=== PATIENT | female | born 2000 | race African-American/Black ===

== ENCOUNTER 2018-05-31 15:33 | Outpatient (CLI) | payer MEDICAID, SELFPAY ==
[2018-05-31 16:44] LABS: FREE T4 0.96 ng/dL (0.78-1.34); TSH 3.79 uIU/mL (0.516-4.13)
== END 2018-05-31 15:34 ==
PROVIDERS: PCP Pediatrics; Visit Provider Nurse Practitioner Women's Health
DX: E03.9 Hypothyroidism, unspecified (principal)
CPT/HCPCS: 36415; 84439; 84443

== ENCOUNTER 2018-09-18 16:26 | Outpatient (CLI) | payer MEDICAID, SELFPAY ==
[2018-09-18 16:48] LABS: Abs Immature Grans 0.02 k/cumm (0.0-0.09); Absolute Basophil Count 0.04 k/cumm (0.0-0.2); Absolute Eosinophil Count 0.44 k/cumm (0.0-0.7); Absolute Lymphocyte Count 2.14 k/cumm (1.2-3.4); Absolute Monocyte Count 0.75 k/cumm (0.11-0.7); Absolute Neutrophil Count 4.77 k/cumm (1.2-6.7); Basophils % 0.5; Eosinophils % 5.4; HCT 37.2 % (36.0-46.0); HGB 12.5 g/dL (12.0-15.5); Immature Grans % 0.2; Lymphocytes % 26.2; Mean Corp. HGB Concentration 33.6 g/dL (32.0-36.0); Mean Corpuscular Hemoglobin 26.5 pg (27.0-33.0); Mean Platelet Volume 9.9 fL (8.0-11.0); Monocytes % 9.2; Neutrophils % 58.5; Platelet Count 285 x1000/uL (130-400); RBC 4.71 m/cumm (4.00-5.20); RBC Distribution Width 15.8 % (11.7-14.6); White Blood Cell Count 8.16 k/cumm (4.4-10.8)
[2018-09-18 17:03] LABS: LDH 209 U/L (81-234)
[2018-09-18 17:26] LABS: ESR 23 MM/HR (0-20)
== END 2018-09-18 16:46 ==
PROVIDERS: Registered Nurse; PCP Pediatrics; Visit Provider Pediatrics
DX: J03.90 Acute tonsillitis, unspecified (principal)
CPT/HCPCS: 85652; 83615; 85025

== ENCOUNTER 2018-09-25 12:09 | Outpatient (REF) | payer MEDICAID, SELFPAY ==
[2018-09-26 14:16] LABS: Chlamydia Result Negative; GC Result Negative; Specimen Description URINE
== END 2018-09-25 12:29 ==
LOC: LBN 12:09
PROVIDERS: PCP Pediatrics; Visit Provider Nurse Practitioner Women's Health
DX: Z11.3 Encounter for screening for infections with a predominantly sexual mode of transmission (principal)
CPT/HCPCS: 87491; 87591

== ENCOUNTER 2018-10-02 14:35 | Outpatient (CLI) | payer MEDICAID, SELFPAY ==
[2018-10-02 15:21] LABS: Mono Screening Negative (Negative)
[2018-10-02 16:14] LABS: FREE T4 1.05 ng/dL (0.76-1.46); TSH 4.88 uIU/mL (0.358-3.74)
== END 2018-10-02 14:55 ==
PROVIDERS: PCP Pediatrics; Visit Provider Registered Nurse
DX: E03.2 Hypothyroidism due to medicaments and other exogenous substances (principal); J02.9 Acute pharyngitis, unspecified
CPT/HCPCS: 36415; 84439; 84443; 86308

== ENCOUNTER 2018-10-02 17:19 | Outpatient (CLI) | payer MEDICAID, SELFPAY ==
--- NOTE | 2018-10-02 15:22 | DI.RAD_ITS ---
SYMPTOM/DIAGNOSIS: COUGHING, R05 PA AND LATERAL CHEST: Comparison is made with 10 Jul 2016. The heart size is normal. The lungs are clear. No infiltrate or effusion seen. There is no evidence of pneumothorax. IMPRESSION: Negative chest x-ray.
== END 2018-10-02 17:39 ==
PROVIDERS: PCP Pediatrics; Visit Provider Registered Nurse
DX: R05 Cough (principal)
CPT/HCPCS: 71046

== ENCOUNTER 2018-10-15 16:02 | Emergency (ER) | payer MEDICAID, SELFPAY ==
[2018-10-15 16:16] VITALS: BP 125/80; PULSE 94; RESP 16; TEMP 36.7; O2SAT 100
--- NOTE | 2018-10-15 16:48 | W.ED.GENAD ---
Discharge Plan Disposition Patient Disposition: HOME Condition: Improving Discharge Details Chief Complaint: Chest Pain Clinical Impression: Chest pain, atypical, Under emotional stress Primary Care Provider: Pedro Rahman ED Provider: Rojas Joseph Home Meds and New Rx's Prescriptions: Continued amoxicillin-pot clavulanate 875-125 mg tablet 1 tab PO BID Qty: 20 RF: 0 naproxen 500 mg tablet 500 mg PO Q12H Qty: 36 RF: 4 medroxyprogesterone [Depo-Provera] 150 mg/mL suspension 150 mg IM [id number] Qty: 1 RF: 4 ProAir HFA 90 mcg/actuation HFA aerosol inhaler 2 puff Inhalation Q4H PRN Qty: 1 RF: 2 levothyroxine 88 mcg capsule 88 mcg PO DAILY Qty: 30 RF: 0 fexofenadine 180 MG tablet 180 mg PO DAILY Qty: 30 RF: 2 fluticasone [Flonase Allergy Relief] 9.9 ML spray,suspension 1 spray NS DAILY Qty: 1 RF: 2 Aerochamber Mini spacer 1 ea Miscellaneous Q4H PRN Qty: 1 RF: 0 Advair HFA 115-21 mcg/actuation HFA aerosol inhaler 2 puff Inhalation BID Qty: 1 RF: 0 Discharge Instructions Instructions: Chest Pain (ED), Stress (ED) Additional Instructions: Return immediately to the emergency department for any new or worsening symptoms otherwise continue to take your medication including her inhaler and follow-up with your primary care provider as needed for reassessment. In the environmental stress that you are stating that you are under it is encouraged that you find ways to reduce your stress and anxiety as this may be contributing to your symptoms. Stand Alone Forms: Work Release Referrals: Pedro Rahman MD [Primary Care Provider] - (As needed for reassessment or if not improving over the next couple days) Discharge Data Discharge Date/Time-TO BE ENTERED AT DEPARTURE: 10/15/18 20:13 Medical Decision Making <Rojas Joseph NP - Last Filed: 10/18/18 23:58> Patient presenting to the emergency department for chief complaint of chest pain. Patient reports that this began yesterday evening and has been intermittent in nature with some associated shortness of breath and some discomfort radiating down her left arm. Patient also does state that she of asthma that may be contributing to the symptoms, just started Augmentin for a sinus infection, and has been under a lot of stress and is very anxious at this time. Patient does state that emotional and stressful situations seems to have worsened her chest pain. Patient denies any injury or trauma. Patient does have reproducible pain with palpation of epigastrium and anterior chest wall. Examination is otherwise unremarkable. Plan to check labs including troponin, feel that ACS is low likelihood, concern more for emotional stressors causing discomfort along with may be asthmatic component given recent illness. Plan to give GI cocktail, ketorolac, ranitidine, albuterol pending results. Review of results show no significant leukocytosis, negative troponin, slightly low magnesium but otherwise unremarkable CMP. Chest x-ray shows no acute findings. Patient reassessed and states significant improvement of symptoms now pain-free. I feel that patient's discomfort is more atypical given reproducibility along with being linked with emotional stressors which I feel is the main cause of patient's discomfort. Patient encouraged to continue to take her normally prescribed medications, perform stress reducing activities, and return for any new or significant worsening of symptoms. After discussion of diagnosis and plan of care patient has no further needs, questions, or concerns and states clear understanding to return to the emergency department for any worsening symptoms. <Golden Alvarado MD - Last Filed: 10/15/18 16:54> ECG Data Attestation: I personally reviewed and interpreted this ECG (s) as follows: Prior ECG tracings: not available for review Interpretation: sinus rhythm, rate of 100, pr 122, qtc 438, no acute st t wave ischemic findings HPI <Rojas Joseph NP - Last Filed: 10/18/18 23:58> General Mode of arrival: ambulatory. Date/Time Provider Initiated Documentation: 10/15/18 16:04. Limitations to Documentation: no limitations. Information obtained by: patient and RN notes reviewed. History of Present Illness 18 year old F presents to the emergency department with the chief complaint of chest pain, described as mild, with intensity rated at 5. Quality is described as other (Pressure), and is localized to the chest. Patient extremity (left). Patient started experiencing this hour(s) (20) and it has been intermittent. Rest improves symptom(s), Other factors that worsen symptoms (Emotional stressors) . Patient did receive the following treatments prior to arrival, none Related Data Home Medications Medication Instructions Recorded Confirmed fexofenadine 180 mg PO DAILY #30 tab-cap 10/15/17 10/15/18 fluticasone [Flonase Allergy 1 spray NS DAILY #1 ml 06/21/18 10/15/18 Relief] medroxyprogesterone 150 mg/mL 150 mg IM [id number] #1 ml 09/25/18 10/15/18 intramuscular suspension naproxen 500 mg tablet 500 mg PO Q12H #36 tab 09/25/18 10/15/18 fluticasone-salmeterol 115 mcg-21 2 puff INHALATION BID #1 inhaler 09/30/18 10/15/18 mcg/actuation HFA aerosol inhaler inhalational spacing device #1 ea 09/30/18 10/14/18 albuterol sulfate HFA 90 2 puff INHALATION Q4H PRN #1 10/02/18 10/15/18 mcg/actuation aerosol inhaler inhaler levothyroxine 88 mcg capsule 88 mcg PO DAILY #30 cap 10/02/18 10/15/18 amoxicillin 875 mg-potassium 1 tab PO BID #20 tab 10/14/18 10/15/18 clavulanate 125 mg tablet Previous Rx's Medication Instructions Recorded fexofenadine 180 mg PO DAILY #30 tab-cap 10/15/17 fluticasone [Flonase Allergy 1 spray NS DAILY #1 ml 06/21/18 Relief] medroxyprogesterone 150 mg/mL 150 mg IM [id number] #1 ml 09/25/18 intramuscular suspension naproxen 500 mg tablet 500 mg PO Q12H #36 tab 09/25/18 fluticasone-salmeterol 115 mcg-21 2 puff INHALATION BID #1 inhaler 09/30/18 mcg/actuation HFA aerosol inhaler inhalational spacing device #1 ea 09/30/18 albuterol sulfate HFA 90 2 puff INHALATION Q4H PRN #1 10/02/18 mcg/actuation aerosol inhaler inhaler levothyroxine 88 mcg capsule 88 mcg PO DAILY #30 cap 10/02/18 amoxicillin 875 mg-potassium 1 tab PO BID #20 tab 10/14/18 clavulanate 125 mg tablet Allergies Allergy/AdvReac Type Severity Reaction Status Date / Time promethazine Allergy Severe Anaphylaxsi Verified 10/14/18 13:56 s General Stated Complaint: Chest Pain QUIANA: 3 Review of Systems <Rojas Joseph NP - Last Filed: 10/18/18 23:58> Constitutional Denies chills, Denies fever(s) and Denies malaise ENT Reports nasal congestion and Reports sinus pressure Cardiovascular Reports as per HPI, Reports chest pain, Denies chest pain with activity, Denies syncope, Denies irregular heart rhythm, Denies palpitations and Reports dyspnea (Intermittent, none at the moment) Respiratory Denies cough, Denies hemoptysis, Reports dyspnea (Intermittent, none at the moment), Denies stridor and Denies wheezing Gastrointestinal Denies abdominal pain, Denies nausea and Denies vomiting Neurologic Denies syncope Psychiatric Reports anxiety Endocrine Denies palpitations Allergic/Immunologic Denies wheezing PFSH <Rojas Joseph NP - Last Filed: 10/18/18 23:58> Medical History Anxiety Depression Hypothyroidism Non-Hodgkin lymphoma Vision problem Wheezing Family History Mother Asthma Father Essential hypertension Hyperlipidemia Asthma Brother No problems noted. GRANDPARENT Diabetes Neoplasm Social History current occupational status: employed current occupation: [employer] in [place] Smoking/Tobacco Use Status: Never alcohol intake: never substance use type: does not use Female Reproductive History Menstrual control method: condoms Exam <Rojas Joseph NP - Last Filed: 10/18/18 23:58> Const General: cooperative, healthy appearing, comfortable, no acute distress, not diaphoretic and not ill appearing Nutritional Appearance: average body habitus Orientation: alert, awake and oriented x3 Limitations: mental status not altered [facility] Head: normal to inspection, normocephalic and atraumatic Ears: hearing grossly normal bilaterally and TM's normal bilaterally General nose exam: external nose normal and nares normal Face and sinus: normal facial exam and sinuses nontender Neck Neck: normal visual inspection, full ROM, no lymphadenopathy, trachea midline, supple and no anterior neck swelling Thyroid: thyroid normal Carotids: normal carotid upstroke and no bruits Chest Chest: normal inspection of the chest Resp Effort & Inspection: normal respiratory effort and able to speak in complete sentences Auscultation: clear to auscultation bilaterally Cardio Jugular venous pressure: no JVD Palpation: normal PMI Rate: regular rate Rhythm: regular rhythm Heart Sounds: S1 normal, S2 normal, no click, no gallops, no murmurs and no rubs Bruits: no abdominal aortic bruits and no carotid bruits Pulses: radial pulses present bilaterally 2+ GI Inspection: normal to inspection Palpation: soft, no aortic enlargement, no pulsatile masses and nontender Auscultation: normal bowel sounds Skin General skin exam: no rashes or lesions noted Neuro General: alert, awake, oriented x3, tone normal and moves all extremities Course <Rojas Joseph NP - Last Filed: 10/18/18 23:58> Vital Signs Temperature 36.7 C 10/15/18 16:16 Pulse 94 H 10/15/18 16:16 Respiratory Rate 16 10/15/18 16:16 Blood Pressure 125/80 10/15/18 16:16 Pulse Oximetry 100 10/15/18 16:16 Temperature 36.7 C 10/15/18 16:16 Temperature Source Temporal Artery Scan 10/15/18 16:16 Pulse 94 H 10/15/18 16:16 Respiratory Rate 16 10/15/18 16:16 Respiratory Effort 10/15/18 16:24 Blood Pressure 125/80 10/15/18 16:16 Blood Pressure Position Sitting 10/15/18 16:16 Pulse Oximetry 100 10/15/18 16:16 Oxygen Delivery Method Room Air 10/15/18 16:16 Oxygen Flow Rate 0 10/15/18 16:16 Pain Level 0 10/15/18 16:16
--- NOTE | 2018-10-15 17:11 | DI.RAD_ITS ---
SYMPTOM/DIAGNOSIS: CHEST PAIN PA AND LATERAL CHEST: The heart is normal in size. The lungs are clear. The mediastinal structures and pleura appear intact. CONCLUSION: Normal chest. No evidence of acute cardiopulmonary disease.
--- NOTE | 2018-10-15 18:13 | DI.VRAD_ITS ---
EXAM: XR Chest, 2 Views EXAM DATE/TIME: 10/15/2018 6:05 PM CLINICAL HISTORY: 18 years old, female; Pain; Chest pain TECHNIQUE: XR of the chest, 2 views. COMPARISON: CR XR CHEST 2V PA LATERAL 10/02/2018 3:17 PM FINDINGS: Lungs: Unremarkable. No consolidation. Pleural space: Unremarkable. No pleural effusion. No pneumothorax. Heart/Mediastinum: Question air filled hiatal hernia No cardiomegaly. Bones/joints: Unremarkable. IMPRESSION: No acute findings. Question air filled hiatal hernia Dictated and Authenticated by: Julio C Hammond MD. Ordering:ERIN Xie MD
[2018-10-15 18:30] LABS: Abs Immature Grans 0.01 k/cumm (0.0-0.09); Absolute Basophil Count 0.03 k/cumm (0.0-0.2); Absolute Eosinophil Count 0.28 k/cumm (0.0-0.7); Absolute Lymphocyte Count 2.37 k/cumm (1.2-3.4); Absolute Monocyte Count 0.76 k/cumm (0.11-0.7); Absolute Neutrophil Count 4.64 k/cumm (1.2-6.7); Basophils % 0.4; Eosinophils % 3.5; HGB 12.5 g/dL (12.0-15.5); Immature Grans % 0.1; Lymphocytes % 29.3; Mean Corp. HGB Concentration 32.9 g/dL (32.0-36.0); Mean Corpuscular Hemoglobin 25.9 pg (27.0-33.0); Mean Corpuscular Volume 78.8 fL (80-95); Mean Platelet Volume 9.8 fL (8.0-11.0); Monocytes % 9.4; Neutrophils % 57.3; Platelet Count 321 x1000/uL (130-400); RBC 4.82 m/cumm (4.00-5.20); RBC Distribution Width 15.9 % (11.7-14.6); White Blood Cell Count 8.09 k/cumm (4.4-10.8)
[2018-10-15 18:38] LABS: Mono Screening Negative (Negative)
[2018-10-15 18:42] LABS: ALT 22 U/L (12-78); AST 12 U/L (15-37); Albumin 3.4 g/dL (3.4-5.0); Alkaline Phosphatase 59 U/L (46-116); Anion Gap 10.1 mmol/L (3-11); BUN 15 mg/dL (7-18); Bilirubin, Total 0.3 mg/dL (0.2-1.0); CO2 26.9 mmol/L (21.0-32.0); CREATININE 0.83 mg/dL (0.55-1.02); Calcium 8.7 mg/dL (8.5-10.1); Chloride 103 mmol/L (98-107); Glucose 92 mg/dL (70-100); Lipase 115 U/L (73-393); Magnesium 1.7 mg/dL (1.8-2.4); Potassium 3.6 mmol/L (3.5-5.1); Sodium 140 mmol/L (136-145); Total Protein 7.7 g/dL (6.4-8.2)
[2018-10-15 18:47] LABS: Troponin I < 0.02 ng/mL (0.00-0.06)
[2018-10-15] MEDS: Albuterol 2.5 MG/3 ML INH SOLN VIAL UPD (18:52)
[2018-10-15] MEDS: Ketorolac 30 MG/ML VIAL IM (19:36)
[2018-10-15 19:55] VITALS: BP 117/78; PULSE 98; RESP 16; O2SAT 100
--- NOTE | 2018-10-15 19:55 | NUR.NOTE ---
pain free after ketoralac
== END 2018-10-15 20:13 | disposition home or self-care (01) ==
PROVIDERS: Emergency Provider Nurse Practitioner Family; PCP Pediatrics
DX: R07.89 Other chest pain (principal); R45.7 State of emotional shock and stress, unspecified
CPT/HCPCS: 36415; 80053; 83690; 93005; 94640; 96372; 99285; 71046; 83735; 84484; 85025; 86308; 93010; J1885; J7613

== ENCOUNTER 2018-10-23 15:30 | Outpatient (CLI) | payer MEDICAID, SELFPAY ==
[2018-10-23 16:48] LABS: FREE T4 1.16 ng/dL (0.76-1.46); TSH 2.54 uIU/mL (0.358-3.74)
== END 2018-10-23 15:50 ==
PROVIDERS: PCP Pediatrics; Visit Provider Registered Nurse
DX: E03.2 Hypothyroidism due to medicaments and other exogenous substances (principal)
CPT/HCPCS: 36415; 84439; 84443

== ENCOUNTER 2018-11-20 12:56 | Outpatient (REF) | payer MEDICAID, SELFPAY ==
[2018-11-21 13:37] LABS: Chlamydia Result Negative; GC Result Negative
== END 2018-11-20 13:16 ==
LOC: LBN 12:56
PROVIDERS: PCP Pediatrics; Visit Provider Nurse Practitioner Women's Health
DX: Z11.3 Encounter for screening for infections with a predominantly sexual mode of transmission (principal)
CPT/HCPCS: 87491; 87591

== ENCOUNTER 2018-12-11 00:31 | Emergency (ER) | payer MEDICAID, SELFPAY ==
[2018-12-11 00:34] VITALS: BP 135/76; PULSE 103; RESP 18; TEMP 37.2; O2SAT 98
--- NOTE | 2018-12-11 00:41 | W.ED.GENAD ---
Discharge Plan Disposition Patient Disposition: HOME Condition: Good Discharge Details Chief Complaint: Orthopedic Clinical Impression: Contusion of left hip, initial encounter, Fall due to ice or snow Primary Care Provider: Pedro Rahman ED Provider: J Luis Matos Home Meds and New Rx's Prescriptions: Continued naproxen 500 mg tablet 500 mg PO Q12H Qty: 36 RF: 4 medroxyprogesterone [Depo-Provera] 150 mg/mL suspension 150 mg IM [id number] Qty: 1 RF: 4 ProAir HFA 90 mcg/actuation HFA aerosol inhaler 2 puff Inhalation Q4H PRN Qty: 1 RF: 2 levothyroxine 88 mcg capsule 88 mcg PO DAILY Qty: 30 RF: 0 fexofenadine 180 mg tablet 180 mg PO DAILY Qty: 30 RF: 2 Advair HFA 115-21 mcg/actuation HFA aerosol inhaler 2 puff Inhalation BID Qty: 1 RF: 3 norethindrone (contraceptive) 0.35 mg tablet 0.35 mg PO DAILY Qty: 28 RF: 0 Aerochamber Mini spacer 1 ea Miscellaneous Q4H PRN Qty: 1 RF: 0 fluticasone [Flonase Allergy Relief] 50 mcg/actuation spray,suspension 1 spray NS DAILY PRNRF: 0 Discharge Instructions Additional Instructions: You may use the naproxen instead of ibuprofen to help with your pain and inflammation. May use Tylenol for pain. Ice on and off for the next few days. Follow-up with primary care next week if not getting better. Return to ED if inability to ambulate, numbness, weakness. Referrals: Pedro Rahman MD [Primary Care Provider] - Medical Decision Making Patient here with left hip pain status post slip and fall on the ice. She ambulates with a limp. She has tenderness over the lateral hip. No ecchymosis. Tylenol and Motrin has not helped. Will obtain x-rays. X-rays are negative. No fracture of the hip or pelvis. Patient to be discharged home to use ice, Motrin, Tylenol as needed. We will take her off work tonight. Follow-up with primary care next week if not getting better. Return to ED for numbness, weakness, inability to ambulate. HPI General Mode of arrival: ambulatory. Date/Time Provider Initiated Documentation: 12/11/18 00:40. Limitations to Documentation: no limitations. Information obtained by: patient. HPI Narrative: Patient slipped and fell on the ice going into work tonight. She landed on her left hip. She did not strike her head. She does not have head or neck pain. Pain is in the left hip radiates around somewhat to the back. Did not land on her back. Has no numbness or tingling distally. Has difficulty ambulating because of pain in the hip. Took Tylenol and Motrin. Related Data Home Medications Medication Instructions Recorded Confirmed medroxyprogesterone 150 mg/mL 150 mg IM [id number] #1 ml 09/25/18 12/11/18 intramuscular suspension naproxen 500 mg tablet 500 mg PO Q12H #36 tab 09/25/18 12/11/18 inhalational spacing device #1 ea 09/30/18 11/25/18 albuterol sulfate HFA 90 2 puff INHALATION Q4H PRN #1 10/02/18 12/11/18 mcg/actuation aerosol inhaler inhaler levothyroxine 88 mcg capsule 88 mcg PO DAILY #30 cap 10/02/18 12/11/18 norethindrone (contraceptive) 0.35 0.35 mg PO DAILY #28 tab 11/20/18 12/11/18 mg tablet fexofenadine 180 mg tablet 180 mg PO DAILY #30 tab-cap 11/25/18 12/11/18 fluticasone-salmeterol 115 mcg-21 2 puff INHALATION BID #1 inhaler 11/25/18 12/11/18 mcg/actuation HFA aerosol inhaler fluticasone [Flonase Allergy 1 spray NS DAILY PRN 12/11/18 12/11/18 Relief] Previous Rx's Medication Instructions Recorded medroxyprogesterone 150 mg/mL 150 mg IM [id number] #1 ml 09/25/18 intramuscular suspension naproxen 500 mg tablet 500 mg PO Q12H #36 tab 09/25/18 inhalational spacing device #1 ea 09/30/18 albuterol sulfate HFA 90 2 puff INHALATION Q4H PRN #1 10/02/18 mcg/actuation aerosol inhaler inhaler levothyroxine 88 mcg capsule 88 mcg PO DAILY #30 cap 10/02/18 norethindrone (contraceptive) 0.35 0.35 mg PO DAILY #28 tab 11/20/18 mg tablet fexofenadine 180 mg tablet 180 mg PO DAILY #30 tab-cap 11/25/18 fluticasone-salmeterol 115 mcg-21 2 puff INHALATION BID #1 inhaler 11/25/18 mcg/actuation HFA aerosol inhaler Allergies Allergy/AdvReac Type Severity Reaction Status Date / Time promethazine Allergy Severe Anaphylaxsi Verified 12/11/18 00:41 s General Stated Complaint: Orthopedic QUIANA: 4 Review of Systems Constitutional Denies headache(s) and Denies weakness ENT Denies headache(s) and Denies neck pain Musculoskeletal Reports abnormal gait, Denies back pain, Reports arthralgias, Denies neck pain, Denies numbness and Denies tingling Integumentary/Breasts Denies wounds Neurologic Reports abnormal gait, Denies confusion, Denies headache(s), Denies focal weakness, Denies numbness, Denies sensory deficit, Denies tingling, Denies paresthesias and Denies weakness Psychiatric Denies confusion [facility] Medical History Moderate persistent asthma (Chronic) Non-Hodgkin lymphoma in remission (Chronic 12/12/17) Menorrhagia with regular cycle (Chronic 12/27/15) 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) Hyperpigmented skin lesion (Chronic 08/03/16) Environmental and seasonal allergies (Chronic 08/02/15) Dysmenorrhea (Chronic 12/27/15) Chronic mixed headache syndrome (Chronic 09/30/15) Acne (Chronic 10/02/13) Anxiety (Chronic) Depression (Chronic) Vision problem (Chronic) Hodgkin lymphoma (Resolved 08/02/15) Social History current occupational status: employed 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[place] sexually active: Yes do you think of yourself as: straight/heterosexual Smoking and Tabacco status: Never alcohol intake: never substance use type: does not use Female Reproductive History Menstrual control method: condoms Exam Const General: cooperative and no acute distress Orientation: alert and oriented x3 HENMT Head: normocephalic and atraumatic Neck Neck: normal visual inspection, full ROM, trachea midline and supple Back/Spine/Pelvis Cervical Spine: cervical ROM normal, No pain with cervical ROM and No cervical spinal tenderness Thoracic/Lumbar Spine: No thoracic spinal tenderness and No lumbar spinal tenderness Pelvis: no buttock ecchymosis and no buttock tenderness Skin General skin exam: no ecchymosis Trauma: lacerations and/or abrasions noted Neuro General: alert, oriented x3, no focal motor deficits and CN's II-XI intact bilaterally Cognition: normal cognition Speech: speech normal Sensory Exam: no sensory deficits noted Extrem General: normal exam except as noted Left lower extremity: normal to inspection, hip/thigh Details: tenderness Location: of the hip and abnormal ROM Details: pain with active ROM; no ecchymosis and knee Details: normal to inspection and normal ROM Course Vital Signs Temperature 99.0 F 12/11/18 00:34 Pulse 103 H 12/11/18 00:34 Respiratory Rate 18 12/11/18 00:34 Blood Pressure 135/76 12/11/18 00:34 Pulse Oximetry 98 12/11/18 00:34 Temperature 99.0 F 12/11/18 00:34 Temperature Source Skin 12/11/18 00:34 Pulse 103 H 12/11/18 00:34 Respiratory Rate 18 12/11/18 00:34 Respiratory Effort Non-Labored 12/11/18 00:37 Blood Pressure 135/76 12/11/18 00:34 Blood Pressure Position Sitting 12/11/18 00:34 Pulse Oximetry 98 12/11/18 00:34 Oxygen Delivery Method Room Air 12/11/18 00:34 Oxygen Flow Rate 0 12/11/18 00:34 Pain Level 10 12/11/18 00:34
--- NOTE | 2018-12-11 00:45 | ED.GENADUL_ITS ---
Discharge Plan Disposition Patient Disposition: HOME Condition: Good Discharge Details Chief Complaint: Orthopedic Clinical Impression: Contusion of left hip, initial encounter, Fall due to ice or snow Primary Care Provider: Pedro Rahman ED Provider: J Luis Matos Home Meds and New Rx's Prescriptions: Continued naproxen 500 mg tablet 500 mg PO Q12H Qty: 36 RF: 4 medroxyprogesterone [Depo-Provera] 150 mg/mL suspension 150 mg IM [id number] Qty: 1 RF: 4 ProAir HFA 90 mcg/actuation HFA aerosol inhaler 2 puff Inhalation Q4H PRN Qty: 1 RF: 2 levothyroxine 88 mcg capsule 88 mcg PO DAILY Qty: 30 RF: 0 fexofenadine 180 mg tablet 180 mg PO DAILY Qty: 30 RF: 2 Advair HFA 115-21 mcg/actuation HFA aerosol inhaler 2 puff Inhalation BID Qty: 1 RF: 3 norethindrone (contraceptive) 0.35 mg tablet 0.35 mg PO DAILY Qty: 28 RF: 0 Aerochamber Mini spacer 1 ea Miscellaneous Q4H PRN Qty: 1 RF: 0 fluticasone [Flonase Allergy Relief] 50 mcg/actuation spray,suspension 1 spray NS DAILY PRNRF: 0 Discharge Instructions Additional Instructions: You may use the naproxen instead of ibuprofen to help with your pain and inflammation. May use Tylenol for pain. Ice on and off for the next few days. Follow-up with primary care next week if not getting better. Return to ED if inability to ambulate, numbness, weakness. Referrals: Pedro Rahman MD [Primary Care Provider] - Medical Decision Making Patient here with left hip pain status post slip and fall on the ice. She ambulates with a limp. She has tenderness over the lateral hip. No ecchymosis. Tylenol and Motrin has not helped. Will obtain x-rays. X-rays are negative. No fracture of the hip or pelvis. Patient to be discharged home to use ice, Motrin, Tylenol as needed. We will take her off work tonight. Follow-up with primary care next week if not getting better. Return to ED for numbness, weakness, inability to ambulate. HPI General Mode of arrival: ambulatory . Date/Time Provider Initiated Documentation: 12/11/18 00:40 . Limitations to Documentation: no limitations . Information obtained by: patient . HPI Narrative: Patient slipped and fell on the ice going into work tonight. She landed on her left hip. She did not strike her head. She does not have head or neck pain. Pain is in the left hip radiates around somewhat to the back. Did not land on her back. Has no numbness or tingling distally. Has difficulty ambulating because of pain in the hip. Took Tylenol and Motrin. Related Data Home Medications Medication Instructions Recorded Confirmed medroxyprogesterone 150 mg/mL 150 mg IM [id number] #1 ml 09/25/18 12/11/18 intramuscular suspension naproxen 500 mg tablet 500 mg PO Q12H #36 tab 09/25/18 12/11/18 inhalational spacing device #1 ea 09/30/18 11/25/18 albuterol sulfate HFA 90 2 puff INHALATION Q4H PRN #1 10/02/18 12/11/18 mcg/actuation aerosol inhaler inhaler levothyroxine 88 mcg capsule 88 mcg PO DAILY #30 cap 10/02/18 12/11/18 norethindrone (contraceptive) 0.35 0.35 mg PO DAILY #28 tab 11/20/18 12/11/18 mg tablet fexofenadine 180 mg tablet 180 mg PO DAILY #30 tab-cap 11/25/18 12/11/18 fluticasone-salmeterol 115 mcg-21 2 puff INHALATION BID #1 inhaler 11/25/18 12/11/18 mcg/actuation HFA aerosol inhaler fluticasone [Flonase Allergy 1 spray NS DAILY PRN 12/11/18 12/11/18 Relief] Previous Rx's Medication Instructions Recorded medroxyprogesterone 150 mg/mL 150 mg IM [id number] #1 ml 09/25/18 intramuscular suspension naproxen 500 mg tablet 500 mg PO Q12H #36 tab 09/25/18 inhalational spacing device #1 ea 09/30/18 albuterol sulfate HFA 90 2 puff INHALATION Q4H PRN #1 10/02/18 mcg/actuation aerosol inhaler inhaler levothyroxine 88 mcg capsule 88 mcg PO DAILY #30 cap 10/02/18 norethindrone (contraceptive) 0.35 0.35 mg PO DAILY #28 tab 11/20/18 mg tablet fexofenadine 180 mg tablet 180 mg PO DAILY #30 tab-cap 11/25/18 fluticasone-salmeterol 115 mcg-21 2 puff INHALATION BID #1 inhaler 11/25/18 mcg/actuation HFA aerosol inhaler Allergies Allergy/AdvReac Type Severity Reaction Status Date / Time promethazine Allergy Severe Anaphylaxsi Verified 12/11/18 00:41 s General Stated Complaint: Orthopedic QUIANA: 4 Review of Systems Constitutional Denies headache(s) and Denies weakness ENT Denies headache(s) and Denies neck pain Musculoskeletal Reports abnormal gait, Denies back pain, Reports arthralgias, Denies neck pain, Denies numbness and Denies tingling Integumentary/Breasts Denies wounds Neurologic Reports abnormal gait, Denies confusion, Denies headache(s), Denies focal weakness, Denies numbness, Denies sensory deficit, Denies tingling, Denies paresthesias and Denies weakness Psychiatric Denies confusion [facility] Medical History Moderate persistent asthma (Chronic) Non-Hodgkin lymphoma in remission (Chronic 12/12/17) Menorrhagia with regular cycle (Chronic 12/27/15) 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) Hyperpigmented skin lesion (Chronic 08/03/16) Environmental and seasonal allergies (Chronic 08/02/15) Dysmenorrhea (Chronic 12/27/15) Chronic mixed headache syndrome (Chronic 09/30/15) Acne (Chronic 10/02/13) Anxiety (Chronic) Depression (Chronic) Vision problem (Chronic) Hodgkin lymphoma (Resolved 08/02/15) Social History current occupational status: employed current occupation: [employer] in [place] sexually active: Yes do you think of yourself as: straight/heterosexual Smoking and Tabacco status: Never alcohol intake: never substance use type: does not use Female Reproductive History Menstrual control method: condoms Exam Const General: cooperative and no acute distress Orientation: alert and oriented x3 HENMT Head: normocephalic and atraumatic Neck Neck: normal visual inspection, full ROM, trachea midline and supple Back/Spine/Pelvis Cervical Spine: cervical ROM normal, No pain with cervical ROM and No cervical spinal tenderness Thoracic/Lumbar Spine: No thoracic spinal tenderness and No lumbar spinal tenderness Pelvis: no buttock ecchymosis and no buttock tenderness Skin General skin exam: no ecchymosis Trauma: lacerations and/or abrasions noted Neuro General: alert, oriented x3, no focal motor deficits and CN's II-XI intact bilaterally Cognition: normal cognition Speech: speech normal Sensory Exam: no sensory deficits noted Extrem General: normal exam except as noted Left lower extremity: normal to inspection, hip/thigh Details: tenderness Location: of the hip and abnormal ROM Details: pain with active ROM; no ecchymosis and knee Details: normal to inspection and normal ROM Course Vital Signs Temperature 99.0 F 12/11/18 00:34 Pulse 103 H 12/11/18 00:34 Respiratory Rate 18 12/11/18 00:34 Blood Pressure 135/76 12/11/18 00:34 Pulse Oximetry 98 12/11/18 00:34 Temperature 99.0 F 12/11/18 00:34 Temperature Source Skin 12/11/18 00:34 Pulse 103 H 12/11/18 00:34 Respiratory Rate 18 12/11/18 00:34 Respiratory Effort Non-Labored 12/11/18 00:37 Blood Pressure 135/76 12/11/18 00:34 Blood Pressure Position Sitting 12/11/18 00:34 Pulse Oximetry 98 12/11/18 00:34 Oxygen Delivery Method Room Air 12/11/18 00:34 Oxygen Flow Rate 0 12/11/18 00:34 Pain Level 10 12/11/18 00:34
--- NOTE | 2018-12-11 01:15 | DI.RAD_ITS ---
SYMPTOMS/DIAGNOSIS: TRAUMA S/P FALL LEFT HIP: There is no demonstrated bony, joint or soft tissue abnormality. No fracture or dislocation is identified.
--- NOTE | 2018-12-11 01:24 | DI.VRAD_ITS ---
EXAM: XR Left Hip with Pelvis when Performed, 2 or 3 Views EXAM DATE/TIME: 12/11/2018 12:47 AM CLINICAL HISTORY: 18 years old, female; Injury or trauma; Fall; Initial encounter; Blunt trauma (contusions or hematomas); Left; Hip; Injury date: 12/10/18; Injury details: Fell on ice. Left hip pain TECHNIQUE: XR Left hip with pelvis when performed, 2 or 3 views COMPARISON: No relevant prior studies available. FINDINGS: Bones/joints: Typical for age. No evidence of acute fracture. Soft tissues: Unremarkable. IMPRESSION: No acute findings. Dictated and Authenticated by: Lewis Sousa MD. Ordering:ANJEL Dietz MD
== END 2018-12-11 01:35 | disposition home or self-care (01) ==
LOC: ER 01:38
PROVIDERS: Emergency Provider Emergency Medicine; PCP Pediatrics
DX: S70.02XA Contusion of left hip, initial encounter (principal); W00.0XXA Fall on same level due to ice and snow, initial encounter
CPT/HCPCS: 99283; 73502; 99282

== ENCOUNTER 2018-12-18 08:40 | Outpatient (CLI) | payer MEDICAID, SELFPAY ==
[2018-12-18 10:23] LABS: FREE T4 1.21 ng/dL (0.76-1.46); TSH 3.13 uIU/mL (0.358-3.74)
[2018-12-19 14:56] LABS: Chlamydia Result Negative; GC Result Negative; Specimen Description URINE
== END 2018-12-18 09:00 ==
PROVIDERS: Nurse Practitioner Women's Health; PCP Pediatrics; Visit Provider Registered Nurse
DX: E03.2 Hypothyroidism due to medicaments and other exogenous substances (principal); Z11.3 Encounter for screening for infections with a predominantly sexual mode of transmission
CPT/HCPCS: 36415; 87491; 87591; 84439; 84443

== ENCOUNTER 2019-03-17 07:47 | Outpatient (CLI) | payer MEDICAID, SELFPAY ==
[2019-03-17 08:27] LABS: Abs Immature Grans 0.01 k/cumm (0.0-0.09); Absolute Basophil Count 0.02 k/cumm (0.0-0.2); Absolute Eosinophil Count 0.23 k/cumm (0.0-0.7); Absolute Lymphocyte Count 2.35 k/cumm (1.2-3.4); Absolute Monocyte Count 0.63 k/cumm (0.11-0.7); Absolute Neutrophil Count 3.68 k/cumm (1.2-6.7); Basophils % 0.3; Eosinophils % 3.3; HCT 37.2 % (36.0-46.0); HGB 12.6 g/dL (12.0-15.5); Immature Grans % 0.1; Mean Corp. HGB Concentration 33.9 g/dL (32.0-36.0); Mean Corpuscular Hemoglobin 27.2 pg (27.0-33.0); Mean Corpuscular Volume 80.2 fL (80-95); Mean Platelet Volume 10.3 fL (8.0-11.0); Monocytes % 9.1; Neutrophils % 53.2; Platelet Count 266 x1000/uL (130-400); RBC 4.64 m/cumm (4.00-5.20); White Blood Cell Count 6.92 k/cumm (4.4-10.8)
== END 2019-03-17 08:07 ==
PROVIDERS: PCP Pediatrics; Visit Provider Pediatrics
DX: C85.90 Non-Hodgkin lymphoma, unspecified, unspecified site (principal)
CPT/HCPCS: 36415; 85025

== ENCOUNTER 2019-10-16 14:56 | Outpatient (CLI) | payer MEDICAID, SELFPAY ==
[2019-10-16 15:28] LABS: HCT 41.7 % (36.0-46.0); HGB 14.2 g/dL (12.0-15.5); Mean Corp. HGB Concentration 34.1 g/dL (32.0-36.0); Mean Corpuscular Hemoglobin 29.2 pg (27.0-33.0); Mean Corpuscular Volume 85.8 fL (80-95); Mean Platelet Volume 9.7 fL (8.0-11.0); Platelet Count 295 x1000/uL (130-400); RBC 4.86 m/cumm (4.00-5.20); RBC Distribution Width 13.4 % (11.7-14.6)
[2019-10-16 16:33] LABS: ALT 28 U/L (14-59); AST 15 U/L (15-37); Albumin 3.7 g/dL (3.4-5.0); Alkaline Phosphatase 51 U/L (46-116); Anion Gap 10.8 mmol/L (3-11); BUN 10 mg/dL (7-18); Bilirubin, Total 0.3 mg/dL (0.2-1.0); CO2 26.2 mmol/L (21.0-32.0); CREATININE 0.67 mg/dL (0.55-1.02); Chloride 104 mmol/L (98-107); Glucose 113 mg/dL (74-106); Potassium 3.8 mmol/L (3.5-5.1); Sodium 141 mmol/L (136-145); TSH (W/Ref FT4) 6.16 uIU/mL (0.36-3.74); Total Protein 7.2 g/dL (6.4-8.2)
[2019-10-17 09:58] LABS: Hemoglobin A1C 5.4 % (4.5-6.2)
== END 2019-10-16 15:16 ==
PROVIDERS: PCP Nurse Practitioner Family; Visit Provider Nurse Practitioner Family
DX: E03.2 Hypothyroidism due to medicaments and other exogenous substances (principal); F32.9 Major depressive disorder, single episode, unspecified; Z83.3 Family history of diabetes mellitus; R03.0 Elevated blood-pressure reading, without diagnosis of hypertension; J45.40 Moderate persistent asthma, uncomplicated; F41.9 Anxiety disorder, unspecified; G43.909 Migraine, unspecified, not intractable, without status migrainosus
CPT/HCPCS: 36415; 80053; 85027; 83036; 84439; 84443

== ENCOUNTER 2019-11-18 10:53 | Outpatient (REF) | payer MEDICAID, SELFPAY ==
--- NOTE | 2019-11-18 09:45 | PAPFT_PTH ---
PATIENT: Enriqueta Nickerson LOC: [facility] U#:[id number] AGE/SX: 19/F ROOM: RE11/18/[address]: Will Wetzel : 2000 BED: DIS: 11/18/2019 SPEC #: [id number] RECD: 11/18/19 12:57 STATUS: STEFANI REQ #: [id number] FLY: 11/18/19 09:[address]: Will Wetzel DEPT: [facility] Cytology RECD BY: Tati Dean Tissues: 1 - CX/ENDOCX FOR PAP SMEARS Procedures: PAP THIN PREP/UVM Screening Comments: [id number]
== END 2019-11-18 11:13 ==
LOC: NCHCN 10:53
PROVIDERS: PCP Nurse Practitioner Family; Visit Provider Nurse Practitioner Family
DX: Z12.4 Encounter for screening for malignant neoplasm of cervix (principal); Z00.00 Encounter for general adult medical examination without abnormal findings
CPT/HCPCS: 88142

== ENCOUNTER 2019-12-08 20:34 | Outpatient (REF) | payer MEDICAID, SELFPAY ==
[2019-12-08 20:20] LABS: TSH (W/Ref FT4) 2.13 uIU/mL (0.36-3.74)
== END 2019-12-08 20:54 ==
LOC: NCHCN 20:34
PROVIDERS: PCP Nurse Practitioner Family; Visit Provider Nurse Practitioner Family
DX: E03.2 Hypothyroidism due to medicaments and other exogenous substances (principal)
CPT/HCPCS: 84443

== ENCOUNTER 2020-03-08 16:23 | Outpatient (REF) | payer MEDICAID, SELFPAY ==
[2020-03-08 18:25] LABS: HCT 40.3 % (36.0-46.0); HGB 13.9 g/dL (12.0-15.5); Mean Corp. HGB Concentration 34.5 g/dL (32.0-36.0); Mean Corpuscular Volume 86.9 fL (80-95); Mean Platelet Volume 10.1 fL (8.0-11.0); Platelet Count 307 x1000/uL (130-400); RBC 4.64 m/cumm (4.00-5.20); RBC Distribution Width 13.5 % (11.7-14.6)
[2020-03-08 18:57] LABS: TSH (W/Ref FT4) 7.36 uIU/mL (0.36-3.74)
[2020-03-08 19:14] LABS: FREE T4 1.07 ng/dL (0.76-1.46)
== END 2020-03-08 16:43 ==
LOC: NCHCN 16:23
PROVIDERS: PCP Nurse Practitioner Family; Visit Provider Nurse Practitioner Family
DX: R04.0 Epistaxis (principal); R03.0 Elevated blood-pressure reading, without diagnosis of hypertension; G43.909 Migraine, unspecified, not intractable, without status migrainosus
CPT/HCPCS: 85027; 84439; 84443

== ENCOUNTER 2020-04-22 21:26 | Outpatient (REF) | payer MEDICAID, SELFPAY ==
[2020-04-22 19:16] LABS: Calculated LDL 118 mg/dL (<100); Cholesterol 179 mg/dL (<200); HDL Cholesterol 46 mg/dL (40-60); TSH (W/Ref FT4) 3.05 uIU/mL (0.36-3.74); Triglyceride 78 mg/dL (<150)
== END 2020-04-22 21:46 ==
LOC: NCHCN 21:26
PROVIDERS: PCP Nurse Practitioner Family; Visit Provider Nurse Practitioner Family
DX: E03.2 Hypothyroidism due to medicaments and other exogenous substances (principal)
CPT/HCPCS: 80061; 84443

== ENCOUNTER 2020-09-29 11:43 | Outpatient (REF) | payer MEDICAID, SELFPAY ==
[2020-09-29 19:57] LABS: Abs Immature Grans 0.02 10^3/uL (0.0-0.06); Absolute Basophil Count 0.04 10^3/uL (0.0-0.2); Absolute Eosinophil Count 0.49 10^3/uL (0.0-0.7); Absolute Monocyte Count 0.64 10^3/uL (0.1-0.8); Basophils % 0.5; Eosinophils % 6.1; HCT 42.9 % (36.0-46.0); HGB 14.6 g/dL (11.2-15.7); Immature Grans % 0.3; Lymphocytes % 32.5; MCH 29.8 pg (27.0-33.0); MCV 87.6 fL (80-95); MPV 10.1 fL (8.0-11.0); Neutrophils % 52.6; Nucleated RBC 0 %; Platelet Count 302 10^3/uL (130-400); RDW 12.5 % (11.7-14.6); WBC 7.99 10^3/uL (4.4-10.8)
[2020-09-29 20:43] LABS: ALT 28 U/L (14-59); AST 16 U/L (15-37); Albumin 4.1 g/dL (3.4-5.0); Alkaline Phosphatase 63 U/L (46-116); Anion Gap 12.4 mmol/L (3-11); BUN 15 mg/dL (7-18); Bilirubin, Total 0.5 mg/dL (0.2-1.0); CO2 23.6 mmol/L (21.0-32.0); CREATININE 0.95 mg/dL (0.55-1.02); Calcium 9.3 mg/dL (8.5-10.1); Chloride 103 mmol/L (98-107); Glucose 105 mg/dL (74-106); Sodium 139 mmol/L (136-145); TSH (W/Ref FT4) 1.22 uIU/mL (0.36-3.74); Total Protein 7.7 g/dL (6.4-8.2)
[2020-09-29 21:03] LABS: HCG Qual (Serum) Negative
== END 2020-09-29 12:03 ==
LOC: NCHCN 11:43
PROVIDERS: PCP Nurse Practitioner Family; Visit Provider Family Medicine
DX: R53.83 Other fatigue (principal); E03.2 Hypothyroidism due to medicaments and other exogenous substances; Z85.72 Personal history of non-Hodgkin lymphomas
CPT/HCPCS: 80053; 84443; 84703; 85025

== ENCOUNTER 2020-09-30 08:50 | Outpatient (CLI) | payer MEDICAID, SELFPAY ==
--- NOTE | 2020-09-30 | DI.RAD_ITS ---
EXAM: XR CHEST 2V PA LATERAL CLINICAL HISTORY: H/O NON HODGKINS LYMPHOMA,Z85.72 TECHNIQUE: 2D digital imaging was performed. COMPARISON: CR XR CHEST 2V PA LATERAL from 10/15/2018 FINDINGS: MEDIASTINUM: Normal. HEART: Normal. PULMONARY VASCULATURE: Normal. LUNGS: Clear. PLEURAL SPACE: No pleural effusion or pneumothorax. BONE:Normal. IMPRESSION: No acute pulmonary findings. DATA REPOSITORY: RADIATION DOSE DELIVERED:
== END 2020-09-30 09:10 ==
PROVIDERS: PCP Nurse Practitioner Family; Visit Provider Family Medicine
DX: Z85.72 Personal history of non-Hodgkin lymphomas (principal)
CPT/HCPCS: 71046

== ENCOUNTER 2020-12-13 18:48 | Outpatient (REF) | payer MEDICAID, SELFPAY ==
[2020-12-15 13:27] LABS: COVID-19 RT-PCR UVMMC Result Negative (Negative)
== END 2020-12-13 18:49 | disposition home or self-care (01) ==
LOC: NCHCN 18:48
PROVIDERS: PCP Nurse Practitioner Family; Visit Provider Nurse Practitioner Family
DX: J06.9 Acute upper respiratory infection, unspecified (principal)
CPT/HCPCS: U0003

== ENCOUNTER 2021-01-02 03:13 | Observation (INO) | payer MEDICAID, SELFPAY ==
[2021-01-02] VITALS (28 sets, daily range): BP systolic 93–162; BP diastolic 30–107; PULSE 61–97; RESP 16–32; TEMP 36–37.1; O2SAT 86–100
--- NOTE | 2021-01-02 03:15 | DI.CT_ITS ---
EXAM: CT ABDOMEN PELVIS W CLINICAL HISTORY: abdominal pain/vomiting TECHNIQUE: Imaging Protocol: Axial computed tomography images with coronal and sagittal reformatted images were created and reviewed CONTRAST MATERIAL: Intravenous: Omnipaque 350 Contrast volume:100 mL Oral: No COMPARISON: No exams were available for comparison FINDINGS: ABDOMEN: Lung Bases: Normal where visualized. Liver: Normal density. No measurable mass. Portal, Superior Mesenteric, and Splenic Veins: Unremarkable. Gallbladder and Biliary Tract: No radiodense calculus or dilation. Pancreas: Normal density, no abnormal calcifications or inflammatory process. Spleen: Normal. Adrenals: No masses seen. Kidneys: Normal size, contour and axis. No radiodense stones or obstructive uropathy. No masses seen. Abdominal Aorta: Abdominal portion non-dilated. Bowel: No obstruction or bowel wall thickening. The retrocecal appendix is distended. It measures 1. 4 cm. There is echogenic material in the base consistent with an appendicolith. Peritoneal Cavity: No ascites, collection or mesenteric inflammatory response. No free air. Lymph Nodes: Within normal limits. Bones: Within normal limits for the patient's age. Soft Tissues: Unremarkable. PELVIS: Bladder: Symmetric distention, no gross wall thickening. Reproductive Organs: Unremarkable as visualized. Lymph Nodes: Within normal limits. Bones: Within normal limits for the patient's age. IMPRESSION: Findings consistent with an acute retrocecal appendicitis with appendicoliths. No abscess or free ai r. RADIATION DOSE DELIVERED: 1,302.39mGy.cm Total DLP DATA REPOSITORY: All CT scans at this facility are submitted to the National Radiology Data Registry (NRDR) Dose Index Registry (DIR) with the [employer] (A[employer]). RADIATION OPTIMIZATION: All CT scans at this facility use at least one of these dose optimization te chniques: automated exposure control; mA and/or kV adjustment per patient size (includes targeted exa ms where dose is matched to clinical indication); or iterative reconstruction.
--- NOTE | 2021-01-02 03:15 | ED.GENADUL_ITS ---
Discharge Plan Disposition Patient Disposition: [facility] INPATIENT Condition: Fair Discharge Details Clinical Impression: Acute appendicitis Primary Care Provider: Will Wetzel ED Provider: J Luis Matos Meds and New Rx's Prescriptions: No Action Advair HFA 230-21 mcg/actuation HFA aerosol inhaler 2 puff IH Q12H Qty: 12 RF: 0 levothyroxine 88 mcg capsule 100 mcg PO DAILY RF: 0 propranolol 20 mg tablet 20 mg PO BID RF: 0 naproxen 500 mg tablet 500 mg PO Q12H Qty: 36 RF: 4 medroxyprogesterone [Depo-Provera] 150 mg/mL suspension 150 mg IM [id number] Qty: 1 RF: 4 fexofenadine 180 mg tablet 180 mg PO DAILY Qty: 30 RF: 2 albuterol sulfate [ProAir HFA] 90 mcg/actuation HFA aerosol inhaler 2 puff Inhalation Q4H PRN Qty: 1 RF: 2 (DME) Aerochamber Mini spacer 1 ea Miscellaneous Q4H PRN Qty: 1 RF: 0 fluticasone propionate [Flonase Allergy Relief] 50 mcg/actuation spray,suspension 1 spray NS DAILY PRNRF: 0 Medical Decision Making Patient presenting with diffuse lower abdominal pain and vomiting. Onset this afternoon and worsening over the evening. Afebrile. Diffusely tender across the lower abdomen without guarding or rebound. No upper abdominal tenderness and no suprapubic tenderness. Urine negative. IV established laboratory studies obtained. Fluids, morphine, Zofran given. CT scan of abdomen pelvis ordered. Laboratory studies significant for elevated white count. Otherwise labs unremarkable. CT scan shows retrocecal appendicitis with 1 cm appendicolith at the base. Patient still having fair amount of pain. Given dose of Dilaudid. Surgery paged. Medical Records Medical records reviewed: Yes I reviewed the patient's medical records. Lab Data Lab results reviewed: Yes I reviewed the patient's lab results. HPI General Mode of arrival: ambulatory . Date/Time Provider Initiated Documentation: 01/02/21 03:15 . Limitations to Documentation: no limitations . Information obtained by: patient and RN notes reviewed . HPI Narrative: Patient presents to ED with abdominal pain that started this afternoon. Periumbilical in location. It has become worse over time. Pain is constant. It is not pelvic in nature does not feel like her previous menstrual cramps. She had her first episode of vomiting around midnight. She denies diarrhea. She denies back pain. She denies urinary symptoms. She has had no fever that she is aware of. No previous abdominal surgeries. Related Data Home Medications Medication Instructions Recorded Confirmed medroxyprogesterone 150 mg/mL 150 mg IM [id number] #1 ml 09/25/18 08/20/19 intramuscular suspension naproxen 500 mg tablet 500 mg PO Q12H #36 tab 09/25/18 08/20/19 inhalational spacing device #1 ea 09/30/18 08/20/19 fexofenadine 180 mg tablet 180 mg PO DAILY #30 tab-cap 11/25/18 08/20/19 fluticasone propionate [Flonase 1 spray NS DAILY PRN 12/11/18 08/20/19 Allergy Relief] fluticasone propionate 230 2 puff IH Q12H #12 gm 07/08/19 08/20/19 mcg-salmeterol 21 mcg/actuation HFA inhaler albuterol sulfate 90 mcg/actuation 2 puff INHALATION Q4H PRN #1 07/09/19 08/20/19 aerosol inhaler inhaler levothyroxine 88 mcg capsule 100 mcg PO DAILY cap 11/11/19 propranolol 20 mg tablet 20 mg PO BID 11/11/19 11/11/19 Previous Rx's Medication Instructions Recorded medroxyprogesterone 150 mg/mL 150 mg IM [id number] #1 ml 09/25/18 intramuscular suspension naproxen 500 mg tablet 500 mg PO Q12H #36 tab 09/25/18 inhalational spacing device #1 ea 09/30/18 fexofenadine 180 mg tablet 180 mg PO DAILY #30 tab-cap 11/25/18 fluticasone propionate 230 2 puff IH Q12H #12 gm 07/08/19 mcg-salmeterol 21 mcg/actuation HFA inhaler albuterol sulfate 90 mcg/actuation 2 puff INHALATION Q4H PRN #1 07/09/19 aerosol inhaler inhaler Allergies Allergy/AdvReac Type Severity Reaction Status Date / Time promethazine Allergy Severe Anaphylaxsi Verified 11/11/19 12:50 s General QUIANA: 4 Review of Systems Narrative: 08/11 Review of Systems completed and is negative except as stated above in HPI (Systems reviewed: Const, Eyes, ENT, Resp, CV, GI, , MSK, Skin, Neuro) [facility] Medical History Acne (10/02/13) MOD COMADONAL ON BACK Anxiety Chronic mixed headache syndrome (09/30/15) Depression Dysmenorrhea (12/27/15) started on DMPA 09/25/18 Environmental and seasonal allergies (08/02/15) Hodgkin lymphoma (08/02/15) treated with chemotherapy. In remission 07/13 Hyperpigmented skin lesion (08/03/16) BL axilla- acanthosis vs. contact dermatitis per [facility] derm Hypothyroidism due to medication (11/12/17) s/p chemo Menorrhagia with regular cycle (12/27/15) treated with DMPA Moderate persistent asthma Vision problem Family History Mother Asthma Father Essential hypertension Hyperlipidemia Asthma Brother No problems noted. 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 HEENT: NC/AT. Normal facial exam. Eyes: Normal conjunctiva and sclera. Neck: Supple. Trachea midline. Lungs: Normal respiratory effort. Lungs are clear. Cor: RRR without murmur/gallop. Good radial pulses. GI: Soft and ND. Diffuse tender across lower abdomen. No suprapubic tenderness. No rebound. Pelvis: deferred Neuro: A+O x 3. Normal speech, mentation, gait. Cranial nerves II - XII grossly intact. No gross motor or sensory deficit. Ext: No C/C/E. Skin: Warm and dry without rash.
[2021-01-02 03:34] LABS: Bilirubin Negative (Negative); Blood Trace-intact (Negative); Clarity Sl Cloudy (Clear); Glucose Negative (Negative); Ketones Negative (Negative); Leukocyte Esterase Negative (Negative); Nitrite Negative (Negative); Specific Gravity >= 1.030 (1.005-1.025); Urobilinogen 0.2 EU/dL (Up TO 0.2)
[2021-01-02] MEDS: Lactated Ringers 1,000 ML 1000 ML IV (03:39)
[2021-01-02 03:43] LABS: Epithelial Cells Few HPF (Negative); WBC 0-2 HPF (0-5)
[2021-01-02] MEDS: MORPHine 10 MG/ML VIAL 4 MG IVP (03:43)
[2021-01-02] MEDS: Ondansetron 4 MG/2 ML VIAL IVP (03:43)
[2021-01-02 03:44] LABS: C & S Indicated? No; Crystals Moderate Amorphous HPF (Negative); Mucus Negative (Negative)
[2021-01-02 03:52] LABS: Abs Immature Grans 0.05 10^3/uL (0.0-0.06); Absolute Basophil Count 0.05 10^3/uL (0.0-0.2); Absolute Lymphocyte Count 2.47 10^3/uL (1.2-3.4); Absolute Monocyte Count 0.77 10^3/uL (0.1-0.8); Basophils % 0.4; Eosinophils % 1.8; HCT 41.2 % (36.0-46.0); Immature Grans % 0.4; Lymphocytes % 18.8; MCH 29.4 pg (27.0-33.0); MCV 86.6 fL (80-95); MPV 9.5 fL (8.0-11.0); Monocytes % 5.9; Neutrophils % 72.7; Nucleated RBC 0 %; Platelet Count 289 10^3/uL (130-400); RBC 4.76 10^6/uL (3.93-5.22); RDW 12.4 % (11.7-14.6); RDW-SD 39.6 fL; WBC 13.12 10^3/uL (4.4-10.8)
[2021-01-02 03:57] LABS: Absolute Eosinophil Count 0.24 10^3/uL (0.0-0.7); Absolute Neutrophil Count 9.54 10^3/uL (1.2-6.7)
[2021-01-02 04:12] LABS: ALT 32 U/L (14-59); AST 13 U/L (15-37); Albumin 3.6 g/dL (3.4-5.0); Alkaline Phosphatase 49 U/L (46-116); Anion Gap 10.3 mmol/L (3-11); BUN 15 mg/dL (7-18); Bilirubin, Total 0.3 mg/dL (0.2-1.0); CO2 25.7 mmol/L (21.0-32.0); CREATININE 0.8 mg/dL (0.55-1.02); Calcium 8.9 mg/dL (8.5-10.1); Chloride 102 mmol/L (98-107); Glucose 119 mg/dL (74-106); Lipase 80 U/L (73-393); Potassium 3.5 mmol/L (3.5-5.1); Sodium 138 mmol/L (136-145); Total Protein 7.8 g/dL (6.4-8.2)
[2021-01-02] MEDS: Omnipaque 350 MG/ML 50 ML BTL IJ ×2 (04:33→04:34)
[2021-01-02] MEDS: Normal Saline - Diluent 50 ML VIAL IV (04:34)
--- NOTE | 2021-01-02 05:03 | DI.VRAD_ITS ---
Addendum created by Julio C Hammond MD on 01/02/2021 5:42:16 AM EST: THIS REPORT CONTAINS FINDINGS THAT MAY BE CRITICAL TO PATIENT CARE. The findings were verbally communicated via telephone conference with AZEB HICKS at 5:42 AM EST on 01/02/2021. The findings were acknowledged and understood. Initial report created on 01/02/2021 5:03:12 AM EST: PROCEDURE INFORMATION: Exam: CT Abdomen And Pelvis With Contrast Exam date and time: 01/02/2021 3:31 AM Age: 20 years old Clinical indication: Patient HX: Abdominal pain, vomiting TECHNIQUE: Imaging protocol: Computed tomography of the abdomen and pelvis with contrast. COMPARISON: CR XR hip LT complete AP pelvis 12/11/2018 12:49 AM FINDINGS: Liver: Normal. No mass. Gallbladder and bile ducts: Normal. No calcified stones. No ductal dilation. Pancreas: Normal. No ductal dilation. Spleen: Normal. No splenomegaly. Adrenal glands: Normal. No mass. Kidneys and ureters: Normal. No hydronephrosis. Stomach and bowel: Unremarkable. No obstruction. No mucosal thickening. Appendix: Appendicoliths measuring approximately 1 cm at the base of a dilated retrocecal appendix measuring up to 13-14 mm Intraperitoneal space: Unremarkable. No free air. No significant fluid collection. Vasculature: Unremarkable. No abdominal aortic aneurysm. Lymph nodes: Unremarkable. No enlarged lymph nodes. Urinary bladder: Unremarkable as visualized. Reproductive: Unremarkable as visualized. Bones/joints: Unremarkable. No acute fracture. Soft tissues: Unremarkable. IMPRESSION: Acute retrocecal appendicitis with 1 cm appendicolith at the base Dictated and Authenticated by: Julio C Hammond MD. Ordering:ANJEL Dietz MD
[2021-01-02] MEDS: PIPERACILLIN/TAZO 3.375 GM in Normal Saline 50 ML IVPB (05:36)
[2021-01-02] MEDS: Ondansetron 4 MG/2 ML VIAL (05:36)
[2021-01-02] MEDS: HYDROmorphone 2 MG/ML VIAL 1 MG IVP (05:36)
[2021-01-02 05:52] LABS: Source Nasal/Nares
--- NOTE | 2021-01-02 06:10 | W.PM.HP.N ---
Date of service: 01/02/21 Time of Service: 06:00 Assessment and Plan Assessment and plan (1) Acute appendicitis: Status: Acute Assessment and plan: 1) admit to observation 2) IV zosyn 3) IV analgesia 4) to OR for emergency appendectomy. presense of fecolith portends any conservative management and the patient is a good surgical candidate despite her obesity. Risks include bleeding and leak. Patient is in agreement and we will proceed to the OR immediately. Qualifiers: Acute appendicitis type: with localized peritonitis History of Present Illness History of Present Illness Chief Complaint: abdominal pain Narrative: 20 year old female with abdominal pain. began as generalized feeling of upset stomach ~12 hours prior to evaluation. Pain became worse and more definged, settling in the mid abdomen to the RLQ. Associated with nausea and vomiting. Nothing made it better or worse. No prior history. no radiation. asked to see by ER d/t CT scan with signs of appendicitis. Review of Systems Constitutional Constitutional: Denies body ache(s), Denies fever(s) and Denies headache(s) ENT Ears, Nose, Mouth, and Throat: Denies abnormal hearing, Denies dysphagia, Denies dizziness and Denies headache(s) Cardiovascular Cardiovascular: Denies chest pain, Denies edema and Denies dyspnea Respiratory Respiratory: Denies cough and Denies dyspnea Gastrointestinal Gastrointestinal: Reports abdominal pain, Denies dysphagia, Denies diarrhea, Reports nausea and Reports vomiting Genitourinary Genitourinary: Denies difficulty voiding and Denies dysuria Musculoskeletal Musculoskeletal: Denies arthralgias and Denies joint swelling Integumentary/Breasts Skin/Breast: Denies skin ulcer and Denies unusual bruising Neurologic Neurologic: Denies abnormal hearing, Denies abnormal speech, Denies dizziness and Denies headache(s) Psychiatric Psychiatric: Denies anxiety and Denies depression Hematologic/Lymphatic Hematologic/Lymphatic: Denies easy bleeding and Denies easy bruising [facility] Medical History Acne (10/02/13) MOD COMADONAL ON BACK Anxiety Chronic mixed headache syndrome (09/30/15) Depression Dysmenorrhea (12/27/15) started on DMPA 09/25/18 Environmental and seasonal allergies (08/02/15) Hodgkin lymphoma (08/02/15) treated with chemotherapy. In remission 07/13 Hyperpigmented skin lesion (08/03/16) [place]illa- [place]anthosis 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 [place] Sexually active: Yes Do you think of yourself as: straight/heterosexual Do you feel safe at home: Yes Do you feel safe in your relationship?: Yes Female Reproductive History Menstrual control method: progesterone injection and condoms Meds Home Medications and Allergies Allergies Allergy/AdvReac Type Severity Reaction Status Date / Time promethazine Allergy Severe Anaphylaxsi Verified 11/11/19 12:50 s Home Medications Medication Instructions Recorded Confirmed Type medroxyprogesterone 150 mg/mL 150 mg IM [id number] #1 ml 09/25/18 08/20/19 Rx intramuscular suspension naproxen 500 mg tablet 500 mg PO Q12H #36 tab 09/25/18 08/20/19 Rx inhalational spacing device #1 ea 09/30/18 08/20/19 Rx fexofenadine 180 mg tablet 180 mg PO DAILY #30 tab-cap 11/25/18 08/20/19 Rx fluticasone propionate [Flonase 1 spray NS DAILY PRN 12/11/18 08/20/19 History Allergy Relief] fluticasone propionate 230 2 puff IH Q12H #12 gm 07/08/19 08/20/19 Rx mcg-salmeterol 21 mcg/actuation HFA inhaler albuterol sulfate 90 mcg/actuation 2 puff INHALATION Q4H PRN #1 07/09/19 08/20/19 Rx aerosol inhaler inhaler levothyroxine 88 mcg capsule 100 mcg PO DAILY cap 11/11/19 History propranolol 20 mg tablet 20 mg PO BID 11/11/19 11/11/19 History Exam Narrative Exam Narrative: NAD RRR S1S2 CTA B S/ND/TTP RLQ + guarding no mass/hernia No jaundice/icterus Mucus membranes moist AAOx3, appropriate affect No C/C/E No skin lesions Results Labs Result diagrams: 01/02/21 03:35 01/02/21 03:35 Labs: Laboratory Results - last 24 hr 01/02/21 01/02/21 01/02/21 03:25 03:35 03:35 WBC 13.12 H RBC 4.76 Hgb 14.0 Hct 41.2 MCV 86.6 MCH 29.4 MCHC 34.0 RDW 12.4 Plt Count 289 MPV 9.5 Immature Gran % 0.4 Neutrophils % 72.7 Lymphocytes % 18.8 Monocytes % 5.9 Eosinophils % 1.8 Basophils % 0.4 Nucleated RBC % 0 Absolute Neutrophils 9.54 H Absolute Lymphocytes 2.47 Absolute Monocytes 0.77 Absolute Eosinophils 0.24 Absolute Basophils 0.05 Sodium 138 Potassium 3.5 Chloride 102 Carbon Dioxide 25.7 Anion Gap 10.3 BUN 15 Creatinine 0.8 Estimated GFR/1.73 m2 >= 60.00 Glucose 119 H Calcium 8.9 Total Bilirubin 0.3 AST 13 L ALT 32 Alkaline Phosphatase 49 Total Protein 7.8 Albumin 3.6 Lipase 80 Urine Color Yellow Urine Clarity Sl cloudy Urine pH 7.0 Ur Specific [place] >= 1.030 H Urine Protein Negative Urine Ketones Negative Urine Blood Trace-intact H Urine Nitrite Negative Urine Bilirubin Negative Urine Urobilinogen 0.2 Ur Leukocyte Esterase Negative Urine RBC 3-5 H Urine WBC 0-2 Ur Epithelial Cells Few Urine Crystals Moderate amorphous Urine Bacteria Urine Mucus Negative Ur Culture Indicated? No Urine Glucose Negative COVID-19 Source 01/02/21 05:25 WBC RBC Hgb Hct MCV MCH MCHC RDW Plt Count MPV Immature Gran % Neutrophils % Lymphocytes % Monocytes % Eosinophils % Basophils % Nucleated RBC % Absolute Neutrophils Absolute Lymphocytes Absolute Monocytes Absolute Eosinophils Absolute Basophils Sodium Potassium Chloride Carbon Dioxide Anion Gap BUN Creatinine Estimated GFR/1.73 m2 Glucose Calcium Total Bilirubin AST ALT Alkaline Phosphatase Total Protein Albumin Lipase Urine Color Urine Clarity Urine pH Ur Specific [place] Urine Protein Urine Ketones Urine Blood Urine Nitrite Urine Bilirubin Urine Urobilinogen Ur Leukocyte Esterase Urine RBC Urine WBC Ur Epithelial Cells Urine Crystals Urine Bacteria Urine Mucus Ur Culture Indicated? Urine Glucose COVID-19 Source Nasal/nares Last Vital Signs Temp 97.7 F 01/02/21 03:16 Pulse 87 01/02/21 04:50 Resp 20 01/02/21 04:50 BP 155/107 H 01/02/21 04:50 Pulse Ox 100 01/02/21 04:50 COVID-19 Screening Have you, or household traveled for leisure in last 14 days?: No Had IN PERSON contact w/suspected or confirmed C-19 person: No
[2021-01-02] MEDS: Lactated Ringers 1,000 ML 30 ML IV (06:58)
[2021-01-02] MEDS: Lidocaine 1% Multi-Dose 50 ML VIAL (07:26)
--- NOTE | 2021-01-02 07:37 | APP_PTH ---
PATIENT: Enriqueta Nickerson LOC: [id number] AGE/SX: 20/F ROOM: [id number] RE01/02/[address]: Adal Montano MD : 2000 BED: A DIS: 01/02/2021 SPEC #: [id number] RECD: 01/03/21 12:28 STATUS: STEFANI REQ #: [id number] FLY: 01/02/21 07:[address]: Adal Montano DEPT: Surgical Specimen RECD BY: Tati Dean ENTERED: 01/03/21 12:30 SP TYPE: Appendix OTHR DR: Will Wetzel Tissues: 1 - APPENDIX NOT INCIDENTAL Procedures: GROSS AND MICRO LEVEL 3 Comments: [id number]
--- NOTE | 2021-01-02 07:46 | W.PM.OP ---
Date of service: 01/02/21 Time of Service: 07:00 Operative Note Operative Note DATE OF PROCEDURE: 01/02/21 PRE-OP DIAGNOSIS: acute appendicitis with peritonitis POST-OP DIAGNOSIS: same PROCEDURE: laparoscopic emergency appendectomy SURGEON: Adal Montano ANESTHESIA TYPE: General LMA/ETT Refer to Anesthesia Record ESTIMATED BLOOD LOSS: 0 PATHOLOGY: other (appendix) COMPLICATIONS: None Patient was transported to: PACU Patient's condition: stable Indications: acute appendicitis Findings: acute appendicitis with apparent fecolith in the proximal half of the appendix Procedure Description: supine, patient prepped/draped. timeout performed. veress needle entry performed at [place] point with negative saline test and 9mmHg opening pressure. Optiview used to gain access through a 1.5 cm incision transverse, supraumbilical. No entry injury seen. 5mm points placed under direct vision in LLQ and suprapubicly. cecum mobilized and the appendix was encountered lateral and retrocecal. the appendix was retracted anteriorly and the mesoappendix was divided with ligasure to the base of the appendix. endostapler placed across the healthy base of the appendix and fired. staple line intact and no bleeding seen. appendix placed in an endocatch bag and removed from abdomen. Final inspetion revealed no abnormalities. abdomen desufflated and ports removed under direct vision. transfascial incision closed with 0 vicryl figure of 8. skin closed with 4-0 monocryl. patient awakened and taken to PACU in stable condition, all counts correct.
[2021-01-02 09:18] LABS: COVID-19 PCR Negative (Negative)
[2021-01-02] MEDS: oxyCODONE 5 mg/Acetaminophen 325 mg TAB 1 TAB PO ×2 (10:15→14:44)
[2021-01-02] MEDS: Propranolol 20 MG TAB PO (11:55)
[2021-01-02] MEDS: Enoxaparin 40 MG/0.4 ML SYR SC (13:29)
--- NOTE | 2021-01-02 15:19 | W.PM.DS.N ---
Date of service: 01/02/21 Time of Service: 15:19 DS: Diagnosis Discharge Diagnosis (1) Acute appendicitis: Status: Acute Discharge Plan Disposition Patient Disposition: HOME Condition: Good Discharge Details Reason For Visit: ACUTE APPENDICITIS WITH PERITONITIS Admit Date/Time: 01/02/21 09:12 Admit Provider: Adal Montano Attending Provider: Adal Montano Primary Care Provider: Will Wetzel Hospital Course Hospital Course: patient admitted and taken to OR urgently for lap appy. patient tolerated well. postoperatively was tolerating diet and PO meds without difficulty. Home Meds and New Rx's Prescriptions: New oxycodone-acetaminophen 5-325 mg Tablet 1 tab PO Q4H PRN PRN (Reason: pain) Qty: 20 RF: 0 Continued levothyroxine 88 mcg capsule 100 mcg PO DAILY RF: 0 naproxen 500 mg tablet 500 mg PO Q12H Qty: 36 RF: 4 albuterol sulfate [ProAir HFA] 90 mcg/actuation HFA aerosol inhaler 2 puff Inhalation Q4H PRN Qty: 1 RF: 2 (DME) Aerochamber Mini spacer 1 ea Miscellaneous Q4H PRN Qty: 1 RF: 0 No Action Cryselle (28) 0.3-30 mg-mcg tablet 1 tab PO HS RF: 0 amitriptyline 10 mg tablet 20 mg PO HS RF: 0 Discharge Instructions Instructions: Laparoscopic Appendectomy (DC) Additional Instructions: 1) d/c home on regular diet 2) no lifting greater than 30 lbs for 6 weeks 3) no driving on pain medication 4) shower daily, no tub bathing 5) call office for followup appointment in 1-2 weeks, call [phone] for appointment 6) call office or seen ER care for fever greater than 101.5, shaking chills, foul-smelling discharge or spreading redness from incisions, inability to tolerate oral intake, or severe right lower abdominal pain Shower/Bathe:: 24 hours Activity:: no lifting over 30 lbs Equipment/Supplies:: No Equipment Needed Diet:: As Tolerated Discharge Orders Discharge Orders: Discharge Order (Routine); Ordered 01/02/21 Ordered By: Adal Montano DS: Summary Time Spent with Patient providing and/or coordinating discharge services: Less than 30 minutes Status at Discharge Functional status at discharge: independent ambulation Overall status at discharge: patient is progressing back to baseline Mental Status: mental status grossly normal Speech and Movement: speech and movement normal Mood: congruent mood Affect: normal affect Exam Psych Mental Status: mental status grossly normal Speech and Movement: speech and movement normal Mood: congruent mood Affect: normal affect DS: Data Vitals/I&O Vitals and I&O: Vital Signs Temperature 98.2 F 01/02/21 14:40 Temperature Source Tympanic 01/02/21 14:40 Pulse 87 01/02/21 14:40 Pulse Rhythm Regular 01/02/21 09:43 Respiratory Rate 16 01/02/21 14:40 Respiratory Effort 01/02/21 09:43 Respiratory Depth Normal 01/02/21 09:43 Respiratory Pattern Normal 01/02/21 09:26 Blood Pressure 113/70 01/02/21 14:40 Blood Pressure Mean 106 01/02/21 06:31 Pulse Oximetry 96 01/02/21 14:40 Respiratory End-tidal CO2 41 01/02/21 09:04 Oxygen Delivery Method Room Air 01/02/21 14:40 Oxygen Flow Rate 0 01/02/21 14:40 Pain Level 2 01/02/21 10:52 Intake & Output 01/01/21 01/02/21 01/02/21 23:59 11:59 23:59 Intake Total 2270 / 4070 1800 / 4070 Output Total 1500 / 1500 Balance 770 / 2570 1800 / 2570 Weight 117.9 kg Intake: IV 1650 / 1650 Oral 620 / 2420 1800 / 2420 Output: Urine 1500 / 1500 Other: Urine Color Yellow Urine Appearance Clear Emesis Description None Data Completed and Pending Labs on day of discharge: Labs from last 24 hours 01/02/21 01/02/21 01/02/21 05:25 03:35 03:35 WBC 13.12 H RBC 4.76 Hgb 14.0 Hct 41.2 MCV 86.6 MCH 29.4 MCHC 34.0 RDW 12.4 Plt Count 289 MPV 9.5 Immature Gran % 0.4 Neutrophils % 72.7 Lymphocytes % 18.8 Monocytes % 5.9 Eosinophils % 1.8 Basophils % 0.4 Nucleated RBC % 0 Absolute Neutrophils 9.54 H Absolute Lymphocytes 2.47 Absolute Monocytes 0.77 Absolute Eosinophils 0.24 Absolute Basophils 0.05 Sodium 138 Potassium 3.5 Chloride 102 Carbon Dioxide 25.7 Anion Gap 10.3 BUN 15 Creatinine 0.8 Estimated GFR/1.73 m2 >= 60.00 Glucose 119 H Calcium 8.9 Total Bilirubin 0.3 AST 13 L ALT 32 Alkaline Phosphatase 49 Total Protein 7.8 Albumin 3.6 Lipase 80 Urine Color Urine Clarity Urine pH Ur Specific [place] Urine Protein Urine Ketones Urine Blood Urine Nitrite Urine Bilirubin Urine Urobilinogen Ur Leukocyte Esterase Urine RBC Urine WBC Ur Epithelial Cells Urine Crystals Urine Bacteria Urine Mucus Ur Culture Indicated? Urine Glucose COVID-19 Source Nasal/nares SARS-CoV-2 (PCR) Negative 01/02/21 03:25 WBC RBC Hgb Hct MCV MCH MCHC RDW Plt Count MPV Immature Gran % Neutrophils % Lymphocytes % Monocytes % Eosinophils % Basophils % Nucleated RBC % Absolute Neutrophils Absolute Lymphocytes Absolute Monocytes Absolute Eosinophils Absolute Basophils Sodium Potassium Chloride Carbon Dioxide Anion Gap BUN Creatinine Estimated GFR/1.73 m2 Glucose Calcium Total Bilirubin AST ALT Alkaline Phosphatase Total Protein Albumin Lipase Urine Color Yellow Urine Clarity Sl cloudy Urine pH 7.0 Ur Specific [place] >= 1.030 H Urine Protein Negative Urine Ketones Negative Urine Blood Trace-intact H Urine Nitrite Negative Urine Bilirubin Negative Urine Urobilinogen 0.2 Ur Leukocyte Esterase Negative Urine RBC 3-5 H Urine WBC 0-2 Ur Epithelial Cells Few Urine Crystals Moderate amorphous Urine Bacteria Urine Mucus Negative Ur Culture Indicated? No Urine Glucose Negative COVID-19 Source SARS-CoV-2 (PCR) [facility] Medical History (Updated 01/02/21 @ 06:16 by Adal Montano) Acne (10/02/13) MOD COMADONAL ON BACK Acute appendicitis Anxiety Chronic mixed headache syndrome (09/30/15) Depression Dysmenorrhea (12/27/15) started on DMPA 09/25/18 Environmental and seasonal allergies (08/02/15) Hodgkin lymphoma (08/02/15) treated with chemotherapy. In remission 07/13 Hyperpigmented skin lesion (08/03/16) BL axilla- acanthosis vs. 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
== END 2021-01-02 15:55 | disposition home or self-care (01) ==
LOC: ER 05:09 → SUR 07:10 → MS 15:24 → ER 01-03 08:59 → SUR 01-03 08:59 → MS 01-03 08:59
PROVIDERS: Admitting Provider Surgery; Emergency Provider Emergency Medicine; PCP Nurse Practitioner Family; Visit Provider Surgery
PROC: 0DTJ4ZZ Resection of Appendix, Percutaneous Endoscopic Approach (ICD-10-PCS; CPT 44970; principal; 2021-01-02 06:05)
DX: K35.80 Unspecified acute appendicitis (principal); K38.1 Appendicular concretions; F41.9 Anxiety disorder, unspecified; F32.9 Major depressive disorder, single episode, unspecified; Z85.71 Personal history of Hodgkin lymphoma; E03.2 Hypothyroidism due to medicaments and other exogenous substances; T45.1X5A Adverse effect of antineoplastic and immunosuppressive drugs, initial encounter; J45.40 Moderate persistent asthma, uncomplicated
CPT/HCPCS: 44970; 36415; 80053; 81025; 83690; 96361; 96365; 96375; 96376; 99217; 99235; 99285; J1650; 74177; 81003; 81015; 85025; 88304; G0378; J1100; J2250; J2270; J2405; J2543; J2704; Q9967

== ENCOUNTER 2021-05-03 03:19 | Outpatient (CLI) | payer MEDICAID, SELFPAY ==
--- NOTE | 2021-05-03 | DI.RAD_ITS ---
Exam(s) XR SHOULDER RT COMPLETE 2+V EXAM: XR SHOULDER RT COMPLETE 2+V CLINICAL HISTORY: RT AC JOINT PAIN, M25.511. TECHNIQUE: 2D digital imaging was performed. COMPARISON: No exams were available for comparison FINDINGS: BONES: No acute fracture is present. No bony destructive lesion is seen. JOINTS: No dislocation present. SOFT TISSUE: Normal. IMPRESSION: Unremarkable radiographs of the right shoulder. DATA REPOSITORY: RADIATION DOSE DELIVERED:
== END 2021-05-03 03:39 ==
PROVIDERS: PCP Nurse Practitioner Family; Visit Provider Physician Assistant
DX: M25.511 Pain in right shoulder (principal)
CPT/HCPCS: 73030

== ENCOUNTER 2022-03-29 16:48 | Outpatient (REF) | payer MEDICAID, SELFPAY ==
[2022-03-29 19:58] LABS: HCT 39.2 % (36.0-46.0); MCH 29.5 pg (27.0-33.0); MCHC 33.2 % (32.0-36.0); MCV 89 fL (80-95); MPV 9.9 fL (8.0-11.0); Platelet Count 343 10^3/uL (130-400); RDW 12.5 % (11.7-14.6); RDW-SD 40.9 fL
[2022-03-29 20:39] LABS: ALT 25 U/L (14-59); AST 12 U/L (15-37); Alkaline Phosphatase 47 U/L (46-116); Anion Gap 9.5 mmol/L (3-11); BUN 13 mg/dL (7-18); Bilirubin, Total 0.2 mg/dL (0.2-1.0); CO2 25.5 mmol/L (21.0-32.0); CREATININE 0.8 mg/dL (0.55-1.02); Calcium 8.9 mg/dL (8.5-10.1); Chloride 103 mmol/L (98-107); Glucose 78 mg/dL (74-106); Sodium 138 mmol/L (136-145); TSH (W/Ref FT4) 2.46 uIU/mL (0.36-3.74); Total Protein 7.3 g/dL (6.4-8.2)
== END 2022-03-29 16:49 | disposition home or self-care (01) ==
LOC: NCHCN 16:48
PROVIDERS: PCP Nurse Practitioner; Visit Provider Nurse Practitioner Family
DX: E03.2 Hypothyroidism due to medicaments and other exogenous substances (principal); G43.909 Migraine, unspecified, not intractable, without status migrainosus; J45.40 Moderate persistent asthma, uncomplicated; Z00.00 Encounter for general adult medical examination without abnormal findings
CPT/HCPCS: 80053; 85027; 84443

== ENCOUNTER 2022-09-07 18:33 | Outpatient (REF) | payer MEDICAID, SELFPAY ==
[2022-09-07 18:31] LABS: HCG Quant, Pregnancy < 1 mIU/mL (1-3)
== END 2022-09-07 18:34 | disposition home or self-care (01) ==
LOC: NCHCN 18:33
PROVIDERS: PCP Nurse Practitioner; Visit Provider Nurse Practitioner Family
DX: R11.0 Nausea (principal); N91.2 Amenorrhea, unspecified
CPT/HCPCS: 84702

== ENCOUNTER 2022-12-08 15:47 | Outpatient (REF) | payer OTHER, MEDICAID, SELFPAY ==
--- NOTE | 2022-12-08 14:45 | PAPFT_PTH ---
PATIENT: Enriqueta Nickerson LOC: NCN U#:[id number] AGE/SX: 22/F ROOM: RE12/08/[address]: Jemima Swartz : 2000 BED: DIS: 12/08/2022 SPEC #: [id number] RECD: 12/11/22 17:50 STATUS: STEFANI REKely #: [id number] FLY: 12/08/22 14:[address]: Jemima Swartz DEPT: [facility] Cyt[facility] RECD BY: Tati Dean ENTERED: 12/11/22 17:51 SP TYPE: PAPFT OTHR DR: Citlaly Gamez Tissues: 1 - CX/ENDOCX FOR PAP SMEARS Procedures: PAP THIN PREP/[facility] Screening Comments: [id number]
== END 2022-12-08 15:48 | disposition home or self-care (01) ==
LOC: NCHCN 15:47
PROVIDERS: PCP Nurse Practitioner; Visit Provider Nurse Practitioner Family
DX: Z12.4 Encounter for screening for malignant neoplasm of cervix (principal); Z00.00 Encounter for general adult medical examination without abnormal findings
CPT/HCPCS: 88142

== ENCOUNTER 2023-02-15 18:41 | Outpatient (REF) | payer OTHER, SELFPAY ==
[2023-02-15 20:03] LABS: TSH (W/Ref FT4) 2.84 uIU/mL (0.36-3.74)
== END 2023-02-15 18:42 | disposition home or self-care (01) ==
LOC: NCHCN 18:41
PROVIDERS: PCP Nurse Practitioner; Visit Provider Nurse Practitioner Family
DX: E03.2 Hypothyroidism due to medicaments and other exogenous substances (principal)
CPT/HCPCS: 84443

== ENCOUNTER 2023-03-22 12:13 | Outpatient (CLI) | payer OTHER, MEDICAID, SELFPAY ==
[2023-03-22 10:52] LABS: Abs Immature Grans 0.02 10^3/uL (0.0-0.06); Absolute Basophil Count 0.03 10^3/uL (0.0-0.2); Absolute Eosinophil Count 0.13 10^3/uL (0.0-0.7); Absolute Lymphocyte Count 2.29 10^3/uL (1.2-3.4); Absolute Monocyte Count 0.68 10^3/uL (0.1-0.8); Absolute Neutrophil Count 4.68 10^3/uL (1.2-6.7); Basophils % 0.4; Eosinophils % 1.7; HCT 39.7 % (36.0-46.0); HGB 13.6 g/dL (11.2-15.7); Immature Grans % 0.3; Lymphocytes % 29.2; MCHC 34.3 % (32.0-36.0); MCV 88 fL (80-95); MPV 9.8 fL (8.0-11.0); Monocytes % 8.7; Neutrophils % 59.7; Platelet Count 278 10^3/uL (130-400); RBC 4.53 10^6/uL (3.93-5.22); RDW-SD 41.3 fL; WBC 7.83 10^3/uL (4.4-10.8)
[2023-03-22 11:21] LABS: Calculated LDL 130 mg/dL (<100); Cholesterol 214 mg/dL (<200); HDL Cholesterol 52 mg/dL (40-60); Triglyceride 161 mg/dL (<150)
[2023-03-22 11:28] LABS: ALT 35 U/L (14-59); AST 17 U/L (15-37); Albumin 3.9 g/dL (3.4-5.0); Alkaline Phosphatase 63 U/L (46-116); Anion Gap 6.9 mmol/L (3-11); BUN 12 mg/dL (7-18); Bilirubin, Total 0.3 mg/dL (0.2-1.0); CO2 29.1 mmol/L (21.0-32.0); CREATININE 0.8 mg/dL (0.55-1.02); Calcium 9.3 mg/dL (8.5-10.1); Chloride 103 mmol/L (98-107); Estimated GFR 105.45 (mL/min/1.73m2); Glucose 105 mg/dL (74-106); Potassium 3.6 mmol/L (3.5-5.1); Sodium 139 mmol/L (136-145); TSH (W/Ref FT4) 3.35 uIU/mL (0.36-3.74)
[2023-03-22 11:39] LABS: HCG Quant, Pregnancy < 1 mIU/mL (1-3)
[2023-03-22 19:45] LABS: Prolactin 5.8 ng/mL (See Note)
[2023-03-26 15:02] LABS: TB Interpretation Negative (Negative)
== END 2023-03-22 12:14 | disposition home or self-care (01) ==
LOC: NCHCN 12:19
PROVIDERS: Obstetrics & Gynecology; PCP Nurse Practitioner Family; Visit Provider Nurse Practitioner Family
DX: N91.1 Secondary amenorrhea (principal); Z00.00 Encounter for general adult medical examination without abnormal findings; Z11.1 Encounter for screening for respiratory tuberculosis; E66.01 Morbid (severe) obesity due to excess calories
CPT/HCPCS: 36415; 80053; 80061; 83036; 84146; 84443; 84702; 85025; 86480

== ENCOUNTER 2023-11-22 03:54 | Outpatient (CLI) | payer OTHER, SELFPAY ==
[2023-11-22 10:47] LABS: Abs Immature Grans 0.03 10^3/uL (0.0-0.06); Absolute Basophil Count 0.03 10^3/uL (0.0-0.2); Absolute Eosinophil Count 0.12 10^3/uL (0.0-0.7); Absolute Lymphocyte Count 2.02 10^3/uL (1.2-3.4); Absolute Monocyte Count 0.58 10^3/uL (0.1-0.8); Absolute Neutrophil Count 6.17 10^3/uL (1.2-6.7); Basophils % 0.3; Eosinophils % 1.3; HCT 37.5 % (36.0-46.0); Immature Grans % 0.3; Lymphocytes % 22.6; MCH 30.2 pg (27.0-33.0); MCHC 34.7 % (32.0-36.0); MCV 87 fL (80-95); Monocytes % 6.5; Platelet Count 252 10^3/uL (130-400); RBC 4.31 10^6/uL (3.93-5.22); RDW 12.9 % (11.7-14.6); RDW-SD 41.1 fL; WBC 8.95 10^3/uL (4.4-10.8)
[2023-11-22 10:57] LABS: Glucose,1 Hr (Glucola) 117 mg/dL (80-140)
[2023-11-22 11:11] LABS: TSH (W/Ref FT4) 1.45 uIU/mL (0.36-3.74)
[2023-11-22 19:05] LABS: HIV-1/2 Ag & Ab Screen Negative (Negative)
[2023-11-22 19:26] LABS: Hepatitis B Surface Ag Negative (Negative)
[2023-11-22 19:56] LABS: Hepatitis C Ab w Rflx HCV PCR Negative (Negative)
[2023-11-23 12:17] LABS: Varicella IgG Antibody Negative (See Note)
[2023-11-23 12:20] LABS: Rubella IgG Ab (UVM) Positive (See Note)
[2023-11-25 14:48] LABS: Syphilis IgG w/Reflex Nonreactive (Nonreactive)
[2023-11-26 16:31] LABS: Specimen WB Whole Blood
[2023-12-03 10:02] LABS: Result Summary NEGATIVE; Specimen WB Whole Blood
== END 2023-11-22 03:55 | disposition home or self-care (01) ==
LOC: LBO 03:54
PROVIDERS: PCP Nurse Practitioner Family; Visit Provider Advanced Practice Midwife
DX: Z34.91 Encounter for supervision of normal pregnancy, unspecified, first trimester
CPT/HCPCS: 36415; 81220; 81222; 81329; 82950; 86787; 86803; 86850; 86900; 86901; 87340; 87389; 84443; 85025; 86762; 86780

== ENCOUNTER 2023-11-22 11:01 | Outpatient (REF) | payer OTHER, SELFPAY ==
[2023-11-22 12:37] LABS: *AMPHETAMINES SCREEN URINE Negative (Negative); *BARBITURATES SCREEN URINE Negative (Negative); *BENZODIAZEPINES SCREEN URINE Negative (Negative); Cannabinoids THC Positive (Negative); Cocaine Screen,Urine Negative (Negative); METHADONE URINE SCREEN Negative (Negative); OPIATES URINE SCREEN Negative (Negative); Tricyclic Antidepressants Negative (Negative)
[2023-11-23 14:08] LABS: Chlamydia Result Negative (Negative); GC Result Negative (Negative)
[2023-11-27 09:42] LABS: Buprenorphine Negative ng/mL (Cutoff: 5.0); Norbuprenorphine Negative ng/mL (Cutoff: 2.5)
== END 2023-11-22 11:02 | disposition home or self-care (01) ==
LOC: LBN 11:01
PROVIDERS: PCP Nurse Practitioner Family; Visit Provider Advanced Practice Midwife
DX: Z34.91 Encounter for supervision of normal pregnancy, unspecified, first trimester (principal)
CPT/HCPCS: 80307; 80348; 87491; 87591; 87086

== ENCOUNTER 2023-12-22 10:32 | Outpatient (REF) | payer OTHER, SELFPAY | END 2023-12-22 10:33 | disposition home or self-care (01) | LOC: NCHCN 10:32 | PROVIDERS: PCP Nurse Practitioner Family; Visit Provider Nurse Practitioner Family | DX: J02.9 Acute pharyngitis, unspecified (principal) | CPT/HCPCS: 87070 ==

== ENCOUNTER 2024-04-10 21:03 | Emergency (ER) | payer OTHER, SELFPAY ==
[2024-04-10 21:05] VITALS: BP 142/83; PULSE 100; RESP 18; TEMP 36.4; O2SAT 99
--- NOTE | 2024-04-10 21:15 | W.ED.GENAD ---
Discharge Plan Disposition Patient Disposition: Home Condition: Stable Discharge Details Clinical Impression: Acute left otitis media Primary Care Provider: FERMÍN ADAMS ED Provider: Golden Avlarado Home Meds and New Rx's Prescriptions: New amoxicillin 875 mg tablet 875 mg PO BID 7 Days Qty: 14 0RF Continued levothyroxine 88 mcg capsule 100 mcg PO DAILY Rx Instructions: Take 1 cap daily. albuterol sulfate [ProAir HFA] 90 mcg/actuation HFA aerosol inhaler 2 puff Inhalation Q4H PRN Qty: 1 2RF metformin 500 mg tablet 500 mg PO BID Qty: 120 3RF Hold Instructions: on hold until after she gives 04/10/24 docusate sodium [Colace] 100 mg capsule 100 mg PO BID Qty: 60 7RF aspirin [Adult Low Dose Aspirin] 81 mg tablet,delayed release (DR/EC) 162 mg PO DAILY buspirone 5 mg tablet 5 mg PO BID Qty: 60 0RF labetalol 200 mg tablet 200 mg PO BID Qty: 60 0RF magnesium oxide 400 mg magnesium tablet 400 mg PO BID Qty: 90 1RF Vitamin Plus Low Iron 27 mg iron- 1 mg tablet 1 tab PO DAILY Qty: 90 4RF Discharge Instructions Additional Instructions: You are being treated for a left ear infection You can take 1000 mg of Tylenol every 6 hours as needed Follow-up with your primary care provider this week if not improving If you feel more ill, have high fevers or severe worsening pain return to the emergency department for reevaluation HPI General Mode of arrival: ambulatory. Date/Time Provider Initiated Documentation: 04/10/24 21:05. Limitations to Documentation: no limitations. Information obtained by: patient. History of Present Illness 23 year old F presents to the emergency department with the chief complaint of left ear pain, described as moderate, Quality is described as aching, and is localized to the left. Patient reports no radiation. Patient started experiencing this hour(s) (7) and it has been constant. No relieving factors improve symptom(s), No exacerbating factors reported . Patient notes no other symptoms.; denies fever/chills. Related Data Home Medications Medication Instructions Recorded Confirmed albuterol sulfate 90 mcg/actuation 2 puff inhalation Q4H PRN ##1 07/09/19 04/10/24 aerosol inhaler (ProAir HFA) levothyroxine 88 mcg capsule 100 mcg PO DAILY 11/11/19 04/10/24 metformin 500 mg tablet 500 mg PO BID #120 tabs 07/10/23 04/10/24 docusate sodium 100 mg capsule 100 mg PO BID #60 caps 12/18/23 04/10/24 (Colace) aspirin 81 mg tablet,delayed 162 mg PO DAILY 01/03/24 04/10/24 release (Adult Low Dose Aspirin) buspirone 5 mg tablet 5 mg PO BID #60 tabs 02/05/24 04/10/24 labetalol 200 mg tablet 200 mg PO BID #60 tabs 02/05/24 04/10/24 magnesium oxide 400 mg PO BID #90 tabs 02/05/24 04/10/24 vitamin with calcium 1 tab PO DAILY #90 tabs 02/05/24 04/10/24 no.72-iron 27 mg-folic acid 1 mg tablet ( Vitamins Plus Low Iron) amoxicillin 875 mg tablet 875 mg PO BID 7 days #14 tabs 04/10/24 Previous Rx's Medication Instructions Recorded albuterol sulfate 90 mcg/actuation 2 puff inhalation Q4H PRN ##1 07/09/19 aerosol inhaler (ProAir HFA) metformin 500 mg tablet 500 mg PO BID #120 tabs 07/10/23 docusate sodium 100 mg capsule 100 mg PO BID #60 caps 12/18/23 (Colace) buspirone 5 mg tablet 5 mg PO BID #60 tabs 02/05/24 labetalol 200 mg tablet 200 mg PO BID #60 tabs 02/05/24 magnesium oxide 400 mg PO BID #90 tabs 02/05/24 vitamin with calcium 1 tab PO DAILY #90 tabs 02/05/24 no.72-iron 27 mg-folic acid 1 mg tablet ( Vitamins Plus Low Iron) amoxicillin 875 mg tablet 875 mg PO BID 7 days #14 tabs 04/10/24 Allergies Allergy/AdvReac Type Severity Reaction Status Date / Time fosaprepitant Allergy Severe Anaphylaxis Verified 04/10/24 21:08 General Stated Complaint: EarProblem QUIANA: 4 Review of Systems All systems reviewed & are unremarkable except as noted in HPI and below Constitutional Constitutional: Denies chills, Denies fever(s) and Denies weakness ENT Ears, Nose, Mouth, and Throat: Reports otalgia Cardiovascular Cardiovascular: Denies chest pain and Denies dyspnea Respiratory Respiratory: Denies cough and Denies dyspnea Gastrointestinal Gastrointestinal: Denies abdominal pain, Denies nausea and Denies vomiting Musculoskeletal Musculoskeletal: Denies joint swelling Neurologic Neurologic: Denies weakness Exam Const General: no acute distress Orientation: alert HENMT Head: normal to inspection Ears: TM normal on the right and left TM abnormal General nose exam: external nose normal Mouth: moist mucous membranes Eyes General: appearance normal, both eyes and all related structures Neck Neck: normal visual inspection Resp Effort & Inspection: normal respiratory effort and able to speak in complete sentences Cardio Rate: regular rate Skin General skin exam: no rashes or lesions noted Neuro General: patient alert and patient oriented x3 Extrem General: normal to inspection Psych Mental Status: mental status grossly normal Course Vital Signs Vital signs: Vital Signs Temperature 36.4 C 04/10/24 21:05 Pulse 100 H 04/10/24 21:05 Respiratory Rate 18 04/10/24 21:05 Blood Pressure 142/83 H 04/10/24 21:05 Pulse Oximetry 99 04/10/24 21:05 Temperature 36.4 C 04/10/24 21:05 Temperature Source Oral 04/10/24 21:05 Pulse 100 H 04/10/24 21:05 Respiratory Rate 18 04/10/24 21:05 Respiratory Effort Normal, Non-Labored 04/10/24 21:12 Blood Pressure 142/83 H 04/10/24 21:05 Blood Pressure Position Sitting 04/10/24 21:05 Pulse Oximetry 99 04/10/24 21:05 Oxygen Delivery Method Room Air 04/10/24 21:05 Oxygen Flow Rate 0 04/10/24 21:05 Pain Level 8 04/10/24 21:05 Medical Decision Making 23-year-old female who is currently 7 months comes in with left ear pain starting this afternoon. She says that she recently had symptoms of sinusitis with sinus pressure that has resolved but the pain in her ear started today. No fevers, no trauma denies any recent swimming. She arrives stable and appears well speaking clearly. Her right TM is normal, both external auditory canals are normal. Her left TM is red and bulging. Normal external mastoid exam bilaterally. Given her pain and findings on the left will initiate amoxicillin for otitis media. She is stable for discharge and advised to follow-up with her PCP if not improving and return precautions given Differential Diagnosis Differential Diagnosis: Otitis media, sinusitis Quality:SDOH Health Related Social Needs: No Data to Display PFSH All Active Problems (Updated 04/10/24 @ 21:16 by Golden Alvarado MD) Acute left otitis media (Acute) Hypertension affecting (Acute) Susceptible to varicella (non-immune), currently (Acute) Marijuana use (Acute) Morbid obesity with BMI of 50.0-59.9, adult (Acute) Migraine (Chronic) Anxiety (Chronic) (Acute) PCOS (polycystic ovarian syndrome) (Acute) S/P appendectomy (Acute) Tonsillar hypertrophy (Acute) Seen by ENT considering removal. 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 contact dermatitis per [facility] [place] derm Environmental and seasonal allergies (Chronic 08/02/15) Chronic mixed headache syndrome (Chronic 09/30/15) Medical History Hypertension Acne (10/02/13) MOD COMADONAL ON BACK Obesity Right rotator cuff tendonitis Pectoralis muscle strain (~02/2021) SLAP lesion of right shoulder (~02/2021) Tendonitis of long head of biceps brachii of right shoulder Anterior epistaxis Dr. Palacios Missed menses History of migraine Menorrhagia with regular cycle (12/27/15) treated with DMPA Hodgkin lymphoma (08/02/15) treated with chemotherapy. In remission 07/13 Dysmenorrhea (12/27/15) started on DMPA 09/25/18 Depression Vision problem Family History (Updated 11/22/23 @ 09:35 by Noemi Hanson CNM) Mother Asthma Diabetes Hyperlipidemia Colon cancer pre cancerous cells, part of colon removed for pre-cancerous cells Father Essential hypertension Hyperlipidemia Asthma GRANDPARENT Diabetes Neoplasm Paternal Grandmother Breast cancer Maternal Grandmother Colon cancer Sister Lupus half sister, shared father Social History Smoking/Tobacco Use Status: Never Smoking risk assessment performed?: Yes Alcohol Intake: never Drug use: Never Substance use type: does not use current occupation: [employer] in [place] Sexually active: Yes Do you think of yourself as: straight/heterosexual Current gender identity: female Do you feel safe at home: Yes Do you feel safe in your relationship?: Yes Female Reproductive History Menstrual control method: progesterone injection and condoms History History 1 Para 0 Hx # Term Pregnancies 0 Multiple births 0 Hx # Pregnancies 0 Ectopic pregnancies 0 AB induced 0 Hx Number of Living Children 0 AB spontaneous 0
[2024-04-10] MEDS: Amoxicillin 875 MG TAB PO (21:21)
== END 2024-04-10 21:28 | disposition home or self-care (01) ==
PROVIDERS: Emergency Provider Emergency Medicine; PCP Nurse Practitioner Family
DX: H66.92 Otitis media, unspecified, left ear; O99.893 Other specified diseases and conditions complicating puerperium
CPT/HCPCS: 99283

== ENCOUNTER 2024-11-26 13:29 | Outpatient (REF) | payer OTHER, SELFPAY | END 2024-11-26 13:30 | disposition home or self-care (01) | LOC: LBN 13:29 | PROVIDERS: PCP Nurse Practitioner Family; Visit Provider Physician Assistant Medical | DX: J10.1 Influenza due to other identified influenza virus with other respiratory manifestations (principal) | CPT/HCPCS: 87070 ==

== ENCOUNTER 2024-12-16 15:48 | Outpatient (REF) | payer OTHER, SELFPAY ==
[2024-12-16 19:50] LABS: TSH (W/Ref FT4) 3.54 uIU/mL (0.36-3.74)
[2024-12-16 20:03] LABS: Hemoglobin A1C 5.6 % (<5.7)
== END 2024-12-16 15:49 | disposition home or self-care (01) ==
LOC: NCHCN 15:48
PROVIDERS: PCP Nurse Practitioner Family; Visit Provider Nurse Practitioner Family
DX: Z00.00 Encounter for general adult medical examination without abnormal findings (principal)
CPT/HCPCS: 83036; 84443

== ENCOUNTER 2025-03-10 16:44 | Outpatient (REF) | payer OTHER, SELFPAY | END 2025-03-10 16:45 | disposition home or self-care (01) | LOC: NCHCN 16:44 | PROVIDERS: PCP Nurse Practitioner Family; Visit Provider Nurse Practitioner Family | DX: E03.2 Hypothyroidism due to medicaments and other exogenous substances (principal) | CPT/HCPCS: 84443 ==